=== PATIENT | male | born 1955 | race Caucasian/White ===

== ENCOUNTER 2016-12-16 15:12 | Inpatient (IN) | payer OTHER ==
[2016-12-16] VITALS (7 sets, daily range): BP systolic 116–140; BP diastolic 42–86
[~2016-12-16] VITALS: Ht 182.9 cm; Wt 85.4 kg
--- NOTE | ~2016-12-16 | CON ---
[place], [place] REPORT OF CONSULTATION NAME: TERI WARD UNIT #: [id number] ROOM: 406 DOCTOR: ANGEL LUIS BANDA MD BIRTHDATE: [birth year] DOS: 12/18/2016 CARDIOLOGY CONSULT REASON FOR CONSULTATION: Atrial fibrillation. CONSULTING PHYSICIAN: Yoan Hunt DO PRIMARY CARE PHYSICIAN: Christopher Simon MD CLINICAL HISTORY: The patient is a 61-year-old gentleman, who presented to the hospital with progressive shortness of breath. He was discharged from the hospital about 10 days ago to a custodial. He was treated for right-sided pneumonia at that time. In the Emergency Room, he was found to be in atrial fibrillation with rapid ventricular rate. He has history of recent atrial fibrillation as well. He was also diagnosed with lung cancer recently and he is anticipating chemotherapy. He denies any dizziness, syncope. No PND, no orthopnea, no fever or chills, no nausea, vomiting, diarrhea. He did complain of some left leg pain and numbness. No cough, no hemoptysis. No blurred vision, no double vision. No hematuria or dysuria. No melena. He was on home oxygen 3 liters per minute. REVIEW OF SYSTEMS: Review of the 8 systems negative except as mentioned above. PAST MEDICAL HISTORY: 1. Paroxysmal atrial fibrillation. 2. Recently diagnosed lung cancer, right lung. 3. Malnutrition. 3. COPD. 4. Depression. 5. Hepatitis C. 6. The patient had osteoarthritis. PAST SURGICAL HISTORY: Cataract surgery, inguinal hernia repair. SOCIAL HISTORY: The patient does use alcohol. Former smoker, quit a few years ago. FAMILY HISTORY: Nil contributory. Father at the age of 79 and mother at the age of 64. Sister at the age of 43 from cancer. ALLERGIES: No known drug allergies. HOME MEDICATIONS: Reviewed. CURRENT MEDICATIONS: Reviewed. REVIEW OF THE DIAGNOSTIC TESTS: EKG rhythm strips and labs reviewed. Cardiac enzymes including troponin was unremarkable. WBC count is 20,000, hemoglobin [place], [place] REPORT OF CONSULTATION NAME: TERI WARD UNIT #: [id number] ROOM: 406 DOCTOR: ANGEL LUIS BANDA MD BIRTHDATE: [birth year] ____. INR 2.6. PHYSICAL EXAMINATION: VITAL SIGNS: Blood pressure ____, pulse 52, respiratory rate is 22. GENERAL: Alert, comfortable, in no acute distress. HEAD AND NECK: Pupils are round, equal. No jaundice. Tongue was moist and pharynx was clear. NECK: Supple, no distended neck veins. No carotid bruits. CHEST: Nontender. Few scattered rhonchi. HEART: Slightly irregular. Grade 1/6 systolic murmur. ABDOMEN: Benign, nontender. Bowel sounds normal. EXTREMITIES: Showed trace edema. Distal pulses are palpable. SKIN: Warm and dry. No cyanosis, no clubbing. NEUROLOGIC: The patient is alert and oriented. No focal neurologic deficit. IMPRESSION: 1. Atrial fibrillation with rapid ventricular rate, currently rate controlled. 2. Right lung mass, anticipating chemotherapy. 3. Acute on chronic diastolic heart failure. 4. Mild anemia. RECOMMENDATIONS: Currently, his blood pressure and heart rates are stable. His vital signs at the time of my exam was blood pressure of ____, pulse 52, respiratory rate is 22. We will wean and discontinue IV Cardizem and resume his home beta-elliot, metoprolol 50 mg twice a day and monitor his heart rate and blood pressures. Continue his home Lasix as well as Coumadin and keep the INR between 2 to 3. No further cardiac testing at this time. He can be discharged home either later today or tomorrow if his heart rates and blood pressure are controlled. There is no family at bedside at the time of my examination. Thank you, Dr. Hunt, for asking us to evaluate this patient and we will follow the case along with you. [place], [place] REPORT OF CONSULTATION NAME: TERI WARD UNIT #: [id number] ROOM: 406 DOCTOR: VERONIKA DOWD,ANGEL LUIS BIRTHDATE: [birth year] ANGEL LUIS BANDA MD CM:CONSTR:REPORT OF CONSULTATION 2106 12/21/16 0245 interface
--- NOTE | ~2016-12-16 | PR ---
[place], [place] PROGRESS NOTE NAME: TERI WARD [facility] #: [id number] UNIT #: [id number] ROOM: 406 DOCTOR: MAZIN AVENDANO MD BIRTHDATE: [birth year] DOS: SUBJECTIVE: The patient is sitting up in bed, does continue to be short of breath, but is reporting some improvement. No specific cardiac complaint. No chest pain, no chest pressure. The patient is walking in the hallway and wants to go home. No fever, no chills, no night sweats. No lower extremity edema. No dizziness, no lightheadedness. OBJECTIVE: VITAL SIGNS: Blood pressure 120/79, heart rate 86, respiratory rate 20, temperature 97.5. NECK: Good upstroke, no bruit. HEART: S1, S2 with no rub. Distant heart sound though. CHEST AND BACK: No deformities. LUNGS: Significant decrease in air movement, specifically at the left lower lung with no wheezing, no rales. EXTREMITIES: Lower extremities: No edema. Faint distal pulses. LABORATORY DATA: INR is 2.3. White count 21.9. Potassium is 4.4, creatinine is 0.6. ASSESSMENT AND PLAN: History of newly diagnosed lung cancer. The patient in preparation for chemotherapy and subsequent surgery. New onset atrial fibrillation that he is currently managed with Coumadin with INR of 2.3 along with Lopressor with good heart rate control. The patient can be discharged home with early followup this coming Wednesday with Dr. Ortega as an outpatient. The patient was advised to call for any change in symptoms. Follow up overall with Dr. Platt as an outpatient. MAZIN AVENDANO MD CM:PNTRANS [id number] MAZIN AVENDANO MD 12/19/16 112 interface
[~2016-12-16 15:12] MED LIST: ACETAMINOPHEN-H1 TA2 PO; COUMADIN4 M2 PO; DUONEB 3 MG/3 ML3 M1 INH; DUONEB 3 MG/3 ML3 M1 NEB; FUROSEMIDE40 MG PO; KLOR-CON M2020 ME1 PO; LEVAQUIN750 M1 PO; MEROPENEM1 G1 IV; NAPROXEN DELAY375 MG PO; NYSTATIN100000 U/M PO; PREDNISONE10 MG PO; PROAIR HFA8.5 GM INH; SYMBICORT1 AE1 INH; TEMAZEPAM15 M1 PO; TENORMIN25 M1 PO; TOPROL XL50 M1 PO; VITAMIN D5000 I3 PO
[2016-12-16 16:28] LABS: HEMATOCRIT 36.4 % (42.0-52.0); HEMOGLOBIN 11.9 g/dl (14.0-18.0); MEAN CELL VOLUME 86.3 fl (80.0-94.0); MEAN CORPUSCULAR HGB 28.2 pg (27.0-31.0); MEAN CORPUSCULAR HGB CONC 32.7 g/dl (33.0-37.0); MEAN PLATELET VOLUME 9.5 fl (9.6-12.3); PLATELET COUNT AUTOMATED 225 10*3/uL (130-400); RED BLOOD COUNT 4.22 10*6/uL (4.50-5.90); RED CELL DISTRI WIDTH 15.5 % (0-14.5); WHITE BLOOD COUNT 23.3 10*3/uL (4.8-10.8)
[2016-12-16 16:38] LABS: INTERNATIONAL NORM RATIO 2.3 (2.0-3.5); PROTHROMBIN TIME 25.8 SECONDS (9.0-12.4)
[2016-12-16 16:46] LABS: ALBUMIN 2.2 gm/dl (3.1-4.5); ALKALINE PHOSPHATASE 72 U/L (45-117); BILIRUBIN, TOTAL 0.5 mg/dl (0.2-1.0); BUN 18 mg/dl (7-24); CARBON DIOXIDE 33 mmol/L (21-32); CHLORIDE 101 mmol/L (98-107); CPK 42 U/L (39-308); EST GLOM FILT AFRICAN AMERICAN > 60 ml/min; GLUCOSE 122 mg/dL (65-99); LDH 243 U/L (87-241); MAGNESIUM 2.1 mg/dL (1.5-2.1); POTASSIUM 4.4 mmol/L (3.5-5.1); SGOT/AST 20 IU/L (3-35); SGPT/ALT 32 U/L (12-78); SODIUM 142 mmol/L (136-145); TOTAL PROTEIN 6.1 gm/dL (6.4-8.2)
[2016-12-16 16:47] LABS: TROPONIN I < 0.015 ng/ml (<0.045)
[2016-12-16 16:53] LABS: LYMPHOCYTE # 0.9 10*3/uL (1.3-4.4); METAMYELOCYTES 1 % (0-0); MONOCYTE # 2.1 10*3/uL (0.1-1.0); NEUTROPHILS 86 % (47-73); TOTAL CELLS COUNTED 100 #CELLS
[2016-12-16 16:55] LABS: PLATELET SUFFICIENCY NORMAL (NORMAL)
[2016-12-16] MEDS ORDERED: LASIX40 MG PO (19:36)
[2016-12-17] VITALS (10 sets, daily range): BP systolic 98–138; BP diastolic 60–79
[2016-12-17 01:00] LABS: TROPONIN I 0.017 ng/ml (<0.045)
[2016-12-17 06:37] LABS: CKMB 1.5 ng/ml (0.5-3.6)
[2016-12-17 06:38] LABS: CPK 32 U/L (39-308); TROPONIN I < 0.015 ng/ml (<0.045)
[2016-12-17 06:40] LABS: HEMOGLOBIN A1c 6.5 % (4.8-5.6)
[2016-12-17 06:43] LABS: HEMATOCRIT 34.8 % (42.0-52.0); HEMOGLOBIN 11.2 g/dl (14.0-18.0); MEAN CELL VOLUME 87.2 fl (80.0-94.0); MEAN CORPUSCULAR HGB 28.1 pg (27.0-31.0); MEAN CORPUSCULAR HGB CONC 32.2 g/dl (33.0-37.0); MEAN PLATELET VOLUME 9.8 fl (9.6-12.3); PLATELET COUNT AUTOMATED 232 10*3/uL (130-400); RED BLOOD COUNT 3.99 10*6/uL (4.50-5.90); RED CELL DISTRI WIDTH 15.5 % (0-14.5); RETICULOCYTE % 1.29 % (0.50-2.50); WHITE BLOOD COUNT 19.6 10*3/uL (4.8-10.8)
[2016-12-17 06:46] LABS: IRF 7.7 % (2.4-13.3); RET-He 29.8 pg (32.1-37.9)
[2016-12-17 06:59] LABS: CHLORIDE 99 mmol/L (98-107); POTASSIUM 4.4 mmol/L (3.5-5.1); SODIUM 139 mmol/L (136-145)
[2016-12-17 07:02] LABS: PROTHROMBIN TIME 21.9 SECONDS (9.0-12.4)
[2016-12-17 07:08] LABS: FERRITIN 976.3 ng/mL (22.0-322.0); VITAMIN D, 25-HYDROXY 33.2 ng/mL (30-100)
[2016-12-17 07:09] LABS: FOLIC ACID 13.82 ng/mL (>5.38)
[2016-12-17 07:14] LABS: ALBUMIN 2.1 gm/dl (3.1-4.5); ALKALINE PHOSPHATASE 70 U/L (45-117); BILIRUBIN, TOTAL 0.6 mg/dl (0.2-1.0); BUN 15 mg/dl (7-24); CARBON DIOXIDE 32 mmol/L (21-32); CHOLESTEROL 193 mg/dL (<200); EST GLOM FILT AFRICAN AMERICAN > 60 ml/min; GLUCOSE 227 mg/dL (65-99); HDL CHOLESTEROL 46 mg/dl (40-60); IRON 21 ug/dL (65-175); LDL CHOLESTEROL 132 mg/dL (9-159); MAGNESIUM 2.1 mg/dL (1.5-2.1); PHOSPHOROUS 2.8 mg/dL (2.5-4.9); SGOT/AST 16 IU/L (3-35); SGPT/ALT 30 U/L (12-78); THYROID STIM HORMONE (HS) 0.463 uIU/ml (0.358-4.75); TOTAL PROTEIN 5.9 gm/dL (6.4-8.2); TRIGLYCERIDES 76 mg/dl (<150); VLDL CHOLESTEROL 15 mg/dL (6-40)
[2016-12-17 07:21] LABS: LYMPHOCYTE # 0.4 10*3/uL (1.3-4.4); MONOCYTE # 0.2 10*3/uL (0.1-1.0); NEUTROPHILS 97 % (47-73); TOTAL CELLS COUNTED 100 #CELLS
[2016-12-17 07:22] LABS: PLATELET SUFFICIENCY NORMAL (NORMAL)
[2016-12-17] MEDS ORDERED: DUONEB 3 MG/3 ML3 M1 INH (10:45)
[2016-12-17] MEDS ORDERED: PREDNISONE10 MG PO (10:47)
[2016-12-17] MEDS ORDERED: NORCO 5-325 TA1 EACH PO (10:47)
[2016-12-17 12:18] LABS: CKMB 1.8 ng/ml (0.5-3.6); CPK 30 U/L (39-308)
[2016-12-17 12:27] LABS: TROPONIN I < 0.015 ng/ml (<0.045)
[2016-12-17 13:41] LABS: BILIRUBIN NEGATIVE (NEGATIVE); BLOOD NEGATIVE (NEGATIVE); CLARITY CLEAR (CLEAR); COLOR YELLOW (YELLOW); GLUCOSE 1+ (NEGATIVE); KETONE NEGATIVE (NEGATIVE); LEUKO ESTERASE NEGATIVE (NEGATIVE); NITRITE NEGATIVE (NEGATIVE); PH 6.5 (5.0-9.0); PROTEIN TRACE (NEGATIVE); UROBILINOGEN 0.2 E.U./dl (0.2-1.0)
[2016-12-17 14:42] LABS: EPITHELIAL CELLS 0-2; RBC 0-2 rbc/hpf (0-2); URINE REFLEX COMMENT NO (NO); YEAST TRACE
[2016-12-18] VITALS (12 sets, daily range): BP systolic 108–126; BP diastolic 60–86
[2016-12-18 07:01] LABS: HEMATOCRIT 34.7 % (42.0-52.0); HEMOGLOBIN 11.2 g/dl (14.0-18.0); MEAN CELL VOLUME 85.9 fl (80.0-94.0); MEAN CORPUSCULAR HGB 27.7 pg (27.0-31.0); MEAN CORPUSCULAR HGB CONC 32.3 g/dl (33.0-37.0); MEAN PLATELET VOLUME 9.5 fl (9.6-12.3); PLATELET COUNT AUTOMATED 252 10*3/uL (130-400); RED BLOOD COUNT 4.04 10*6/uL (4.50-5.90); RED CELL DISTRI WIDTH 15.5 % (0-14.5)
[2016-12-18 07:30] LABS: LYMPHOCYTE # 0.6 10*3/uL (1.3-4.4); MONOCYTE # 0.8 10*3/uL (0.1-1.0); NEUTROPHIL # 18.6 10*3/uL (2.3-7.9); NEUTROPHILS 93 % (47-73); PLATELET SUFFICIENCY NORMAL (NORMAL); TOTAL CELLS COUNTED 100 #CELLS
[2016-12-18 07:35] LABS: INTERNATIONAL NORM RATIO 2.6 (2.0-3.5); PROTHROMBIN TIME 29.1 SECONDS (9.0-12.4)
[2016-12-19] VITALS: BP 113/79
[2016-12-19 02:00] VITALS: BP 114/80
[2016-12-19 06:00] VITALS: BP 120/78
[2016-12-19 06:26] LABS: HEMATOCRIT 34.1 % (42.0-52.0); HEMOGLOBIN 10.8 g/dl (14.0-18.0); MEAN CELL VOLUME 88.3 fl (80.0-94.0); MEAN CORPUSCULAR HGB CONC 31.7 g/dl (33.0-37.0); MEAN PLATELET VOLUME 9.5 fl (9.6-12.3); PLATELET COUNT AUTOMATED 287 10*3/uL (130-400); RED BLOOD COUNT 3.86 10*6/uL (4.50-5.90); RED CELL DISTRI WIDTH 15.8 % (0-14.5); WHITE BLOOD COUNT 21.9 10*3/uL (4.8-10.8)
[2016-12-19 06:35] LABS: INTERNATIONAL NORM RATIO 3.7 (2.0-3.5); PROTHROMBIN TIME 42.1 SECONDS (9.0-12.4)
[2016-12-19 06:53] LABS: LYMPHOCYTE # 0.2 10*3/uL (1.3-4.4); MONOCYTE # 0.2 10*3/uL (0.1-1.0); NEUTROPHIL # 21.5 10*3/uL (2.3-7.9); NEUTROPHILS 98 % (47-73); TOTAL CELLS COUNTED 100 #CELLS
[2016-12-19 06:54] LABS: PLATELET SUFFICIENCY NORMAL (NORMAL); TOXIC GRANULATION SLIGHT
[2016-12-19 08:00] VITALS: BP 120/79
[2016-12-19] MEDS ORDERED: FEOSOL325 MG PO (11:33)
[2016-12-19] MEDS ORDERED: DOXYCYCLINE100 MG PO (11:33)
[2016-12-19 12:00] VITALS: BP 132/94
[2016-12-19] MEDS ORDERED: ACETAMINOPHEN-H1 TA2 PO ×2 (13:37→13:45)
== END 2016-12-19 14:00 | disposition home health service (06) | DRG 871 ==
LOC: ED 15:12 → EDHOLD 16:36 → 4E 16:36
PROVIDERS: Hospitalist; Internal Medicine; Physician Assistant
DX: A41.9 Sepsis, unspecified organism (principal); E43 Unspecified severe protein-calorie malnutrition; J96.20 Acute and chronic respiratory failure, unspecified whether with hypoxia or hypercapnia; I50.33 Acute on chronic diastolic (congestive) heart failure; D68.9 Coagulation defect, unspecified; J18.1 Lobar pneumonia, unspecified organism; J44.1 Chronic obstructive pulmonary disease with (acute) exacerbation; I48.0 Paroxysmal atrial fibrillation; R91.8 Other nonspecific abnormal finding of lung field; R73.9 Hyperglycemia, unspecified; D64.9 Anemia, unspecified; Z96.1 Presence of intraocular lens; F32.9 Major depressive disorder, single episode, unspecified; T45.515A Adverse effect of anticoagulants, initial encounter; M19.90 Unspecified osteoarthritis, unspecified site; Z86.19 Personal history of other infectious and parasitic diseases; Z98.41 Cataract extraction status, right eye; Z80.9 Family history of malignant neoplasm, unspecified; Z79.2 Long term (current) use of antibiotics; Z79.1 Long term (current) use of non-steroidal anti-inflammatories (NSAID); Z79.01 Long term (current) use of anticoagulants; Y92.89 Other specified places as the place of occurrence of the external cause; Z85.118 Personal history of other malignant neoplasm of bronchus and lung; Z87.891 Personal history of nicotine dependence; Z68.25 Body mass index [BMI] 25.0-25.9, adult

== ENCOUNTER 2016-12-27 10:01 | Inpatient (IN) | payer OTHER ==
[~2016-12-27] VITALS: Ht 182.9 cm; Wt 79.4 kg
[2016-12-27] VITALS (10 sets, daily range): BP systolic 103–139; BP diastolic 61–79
--- NOTE | ~2016-12-27 | PR ---
[place], [place] PROGRESS NOTE NAME: TERI WARD UNIT #: [id number] ROOM: 509 DOCTOR: CHRISTINA NIELSEN MD BIRTHDATE: [birth year] DOS: 01/02/2017 PULMONARY PROGRESS NOTE SUBJECTIVE: He has been noted comfortable at this time without any significant further pleural fluid drainage was noted from the chest tube. Only 20 mL of pleural fluid drainage was noted. He has been noted with decreasing shortness of breath. Chest pain for the patient and other pain for the patient has been controlled with pain medications. OBJECTIVE: VITAL SIGNS: For the patient this morning, blood pressure 111/70, temperature normal, respiratory rate 22, heart rate 104-86. The pulse oxygen saturation of the patient recorded on 4 liters nasal cannula 96% saturation. HEENT: Examination showed no new change. NECK: Supple. CARDIOVASCULAR SYSTEM: S1, S2 audible. LUNGS: Mild to moderate decreased breath sound, right chest. ABDOMEN: Soft, nontender, bowel sounds present. EXTREMITIES: Show mild edema. LABORATORY DATA: CBC today: WBC count 29.0, hemoglobin 11.1, hematocrit 36.9, platelet count 402,000. The PT/INR today noted 2.5, which is therapeutic. The chest x-ray of the patient that was done this morning showed no changes from yesterday. Chest tube remains in place in the left hemithorax with a large mass lesion in the right upper lobe. There was no pneumothorax. IMPRESSION: 1. The patient with malignant pleural fluid for the patient, currently planned for chemical pleurodesis to be done today. 2. Leukocytosis with acute bacterial pneumonia of the patient postobstructive pneumonia and history of current known lung cancer, squamous cell cancer. PLAN OF TREATMENT: Chemical pleurodesis will be done at the bedside. Other changes in the treatment will be done if necessary with progression of the illness. [place], [place] PROGRESS NOTE NAME: TERI WARD UNIT #: [id number] ROOM: 509 DOCTOR: CHRISTINA NIELSEN MD BIRTHDATE: [birth year] CHRISTINA BARRETT MD CM:PNTRANS [phone] CHRISTINA REYES MD 01/02/172050 interface
--- NOTE | ~2016-12-27 | PR ---
[place], [place] PROGRESS NOTE NAME: TERI WARD UNIT #: [id number] ROOM: 509 DOCTOR: CHRISTINA NIELSEN MD BIRTHDATE: [birth year] DOS: 01/04/2017 PULMONARY PROGRESS NOTE SUBJECTIVE: Chest tube drainage was noted none at this time. The patient has been noted without any acute respiratory distress at this time. Continue all the previous management including pain management for his chest pain. OBJECTIVE: VITAL SIGNS: For the patient which has been recorded showed the temperature of the patient noted as normal. The respiratory rate 22, heart rate 109, blood pressure 102/64. Pulse oxygen saturation recorded for patient as 95% with the 50% Venturi mask. HEENT: Examination shows head was atraumatic. Eyes nonicterus. NECK: Supple. CARDIOVASCULAR: S1, S2 audible. LUNGS: Showed decreased breath sounds noted in the right chest auscultation as previously. ABDOMEN: Soft, nontender. LABORATORY DATA: Chest x-ray which was done this morning for the patient was noted with persistent opacification of the right upper lobe secondary to atelectasis and large lung mass for patient in the right upper lobe. Chest tube noted in place with expanded right lower lung. CBC today for the patient, WBC count 36.8, hemoglobin 11.5, hematocrit 38.3, platelet count 505,000. BMP for this patient that was done this morning shows sodium 133, BUN 22, creatinine was normal, carbon dioxide 39. IMPRESSION: 1. Malignant pleural fluid for this patient was noted secondary to current advanced malignancy with squamous cell cancer. 2. The patient with resolving acute postobstructive pneumonia with persistent leukocytosis, other etiology of leukocytosis will be considered most likely secondary to lung malignancy as well. 3. Overall debility for patient as well with chest pain. PLAN OF TREATMENT: Continuation of the current plan of management at this time without any changes. Usual care. All other supportive therapy, plan and management. Usual treatment. Chest tube has been removed for this patient at the bedside without any difficulty. The patient might be considered for possible assessment for transfer to the long-term acute care facility. [place], [place] PROGRESS NOTE NAME: TERI WARD UNIT #: [id number] ROOM: 509 DOCTOR: CHRISTINA NIELSEN MD BIRTHDATE: [birth year] CHRISTINA BARRETT MD CM:PNTRANS [phone] CHRISTINA REYES MD 01/05/17 0354 interface
--- NOTE | ~2016-12-27 | PR ---
[place], [place] PROGRESS NOTE NAME: TERI WARD [facility] #: [id number] UNIT #: [id number] ROOM: 509 DOCTOR: GRIS SHERMAN MD BIRTHDATE: [birth year] DOS: 01/01/2017 SUBJECTIVE: The patient is doing much better. He states he had a visceral for shortness of breath, but feeling good now. REVIEW OF SYSTEMS: HEENT: No trouble swallowing. No double vision. No loss of vision. No pain. ENT AND RESPIRATORY: No wheeze. No change in voice. No cough. No shortness of breath. No coughing up blood. No epistaxis. CARDIOLOGIC: No chest pain. No dizziness. No irregular heartbeat. No leg edema. No palpitations. No shortness of breath. HEMATOLOGIC AND LYMPH: No past transfusion. No fatigue. No loss of appetite. No easy bruising. GASTROENTEROLOGIC: No change in bowel habits. No vomiting blood. No abdominal cramping. No nausea. No vomiting. No diarrhea. No constipation. No blood in stool. MALE REPRODUCTIVE: No testicular pain. No penile discharge. MUSCULOSKELETAL: No back pain. No muscle pain or weakness. No tingling/numbness. UROLOGIC: No pain with urination. No difficulty urinating. No frequent urination. NEUROLOGIC: No burning pain in feet. No trouble with coordination. No loss of consciousness. No headache. No tingling/numbness. No memory loss. PHYSICAL EXAMINATION: GENERAL: He is a pleasant gentleman, in no apparent distress. VITAL SIGNS: Stable. He is afebrile. HEENT: Normocephalic, atraumatic NECK AND THYROID: Supple. No JVD, thyromegaly, or lymphadenopathy. HEART: Normal S1, S2. Regular rate and rhythm. LUNGS: Clear to auscultation and percussion. ABDOMEN: Soft. Nontender, nondistended. Bowel sounds present. EXTREMITIES: Normal ROM. No clubbing. No edema. LABORATORY DATA: Sodium 142, potassium 4.4, chloride 98, bicarbonate 40. Chest x-ray showed no significant change, large mass in the right upper lobe and a small apical right pneumothorax. ASSESSMENT: 1. Acute respiratory failure with hypoxia. 2. Pneumonia. 3. Atrial fibrillation. 4. Metastatic lung cancer. 5. Leukocytosis, reactive. 6. Anemia of neoplastic disorder. 7. Thrombocytosis. PLAN: Overall, he is getting better. We will wait for his overall condition to improve. I expect the white count to improve once his overall condition improves. The patient will be needing treatment as soon as he is stable enough [place], [place] PROGRESS NOTE NAME: TERI WARD UNIT #: [id number] ROOM: [facility] DOCTOR: GRIS SHERMAN MD BIRTHDATE: [birth year] to get it. I had a detailed discussion with the patient about it, seemed to understand it. Ample time was given to the patient to ask me questions. GRIS SHERMAN MD CM:PNTRANS [phone] GRIS SHERMAN MD 01/01/17 174 interface
--- NOTE | ~2016-12-27 | PR ---
[place], [place] PROGRESS NOTE NAME: TERI WARD [facility] #: [id number] UNIT #: [id number] ROOM: 509 DOCTOR: NENA REYES MD,CHRISTINA BIRTHDATE: [birth year] DOS: 12/30/2016 PULMONARY PROGRESS NOTE SUBJECTIVE: The patient has been noted comfortable at this time. It was noted the pain in the chest yesterday, which has been managed with a combination of medication use of morphine sulfate and IV Toradol. This morning, the patient had been comfortably resting. He has been continued on antibiotics. The chest tube was inserted yesterday, which has drained about 1600 mL of pleural fluid from the right pleural space. OBJECTIVE: VITAL SIGNS: For the patient, which have been recorded shows normal temperature, respiratory rate of 20, heart rate of 50, blood pressure of /61-150/75. Intake for the patient is 2000 mL, output was approximately 3900 mL. Pulse oxygen saturation of the patient on 4 L nasal cannula 97% saturation. HEENT: Examination shows head was atraumatic. Eyes nonicterus. NECK: Supple. CARDIOVASCULAR SYSTEM: S1, S2 audible. LUNGS: The patient was noted without any wheezing or crackles. Breaths are noted mildly decreased bilaterally. ABDOMEN: Soft, nontender. LABORATORY DATA: Arterial blood gas on 4.5 L nasal cannula yesterday pH of 7.42, pCO2 of 58, pO2 of 88.4. The analysis of the pleural fluid for the patient was noted at 3349 WBCs with 11,000 RBCs, 70% neutrophils. The protein was noted as 2.3. LDH 188, cholesterol of 58. Albumin 1.1. The culture of the pleural fluid was pending. Gram-stain shows many white blood cells without any organisms seen. Chest x-ray of the patient yesterday and this morning for the patient shows non-expanded lung for the patient at the top with small pneumothorax cannot be excluded, was a non-expanded lung. The lung otherwise was well-inflated in the right lower lobe for the patient with complete resolution of the pleural fluid. Chest tube noted in appropriate position in the right lower chest. BMP this morning was noted BUN 27, creatinine was normal, glucose 129, carbon dioxide 35. Vancomycin level 23.5. CBC this morning, WBC count 25.9, hemoglobin 11.8, hematocrit 37.7, platelet count 482,000. INR for the patient this morning was recorded as INR of 1.7. IMPRESSION: 1. The patient who has been currently noted with pleural fluid for the patient with possibility of pleural fluid related to the acute infection would be considered, rule out malignant pleural fluid as well. 2. Acute postobstructive pneumonia for this patient as well with recurrent history of atrial fibrillation with rapid ventricular response. 3. Subtherapeutic INR was noted today. 4. secondary to underlying malignancy, pneumonia and others. PLAN OF TREATMENT: Continue the chest tube to suction at this time. Monitor results of the pleural fluid. Continue antibiotic for the patient. Monitor [place], [place] PROGRESS NOTE [id number] UNIT #: [id number] ROOM: [facility] DOCTOR: NENA REYES MD,CHRISTINA BIRTHDATE: [birth year] leukocytosis. Leukocytosis has been improving. Other supportive therapy, plan of management. Maximize the anticoagulation of the patient's INR to keep in therapeutic range. Usual care. Other supportive plan of management and therapies. CHRISTINA BARRETT MD CM:SATNAM [phone] CHRISTINA REYES MD 12/30/162018 interface
--- NOTE | ~2016-12-27 | PR ---
[place], [place] PROGRESS NOTE NAME: TERI WARD [facility] #: [id number] UNIT #: [id number] ROOM: 509 DOCTOR: NENA REYES MD,CHRISTINA BIRTHDATE: [birth year] DOS: 01/01/2017 PULMONARY PROGRESS NOTE SUBJECTIVE: He has been noted without any acute distress at the present time. The chest pain has been noted well controlled. He was still noted some symptoms of shortness of breath. The patient denies any symptoms of acute ____ chest pain. Cough has been noted mild without any sputum expectoration. OBJECTIVE: VITAL SIGNS: For the patient which has been recorded shows the temperature of the patient noted as normal. The respiratory rate of the patient recorded as 18, heart rate 87, blood pressure 112/73-160/80. Pulse oxygen saturation noted on 4 liters nasal cannula 93% saturation. HEENT: Examination shows no new change. NECK: Supple. CARDIOVASCULAR SYSTEM: S1, S2 audible. LUNGS: Without any wheezing or crackles. Breaths are noted decreased in the right lung. ABDOMEN: Soft, nontender. LABORATORY DATA: CBC today: WBC count 26.7, hemoglobin 11.2, hematocrit 36.9, platelet count of 473,000. The INR for the patient today noted 1.3, which is subtherapeutic. The BMP this morning was noted as normal BUN and creatinine. The chest x-ray of the patient that was done this morning for the patient was personally reviewed for this patient and was noted with findings of a large tumor which was noted in the right upper lobe for this patient. The chest tube remains in place. The pneumothorax of the patient has been noted very small at this time and improving as compared with the previous chest x-ray for the past couple of days. There were no significant pleural fluid accumulation of the patient was noted. IMPRESSION: 1. The patient with malignant pleural fluid which has been determined with the current pleural fluid cytology positive for malignancy. 2. Resolving apical pneumothorax for the patient and the right side of the patient currently has a chest tube in place. 3. Postobstructive pneumonia. 4. Squamous cell cancer of the patient with the malignancy noted in the pleural fluid on the right side. PLAN OF TREATMENT: Await another 24 hours and then do the chemical pleurodesis of the patient for the current right malignant pleural fluid (recurrence). In the meantime, continue antibiotics. Optimize the patient's anticoagulation per Cardiology assessment and management and other intervention as necessary for the atrial fibrillation as well. [place], [place] PROGRESS NOTE NAME: TERI WARD [place] UNIT #: [id number] ROOM: [facility] DOCTOR: CHRISTINA NIELSEN MD BIRTHDATE: [birth year] CHRISTINA BARRETT MD CM:PNTRANS [phone] CHRISTINA REYES MD 01/02/17 0502 interface
--- NOTE | ~2016-12-27 | CON ---
[place], [place] REPORT OF CON[facility]ULTATION [id number] UNIT #: [id number] [facility] DOCTOR: CHRISTINA NIELSEN MD BIRTHDATE: [birth year] DOS: 12/28/2016 PULMONARY CONSULTATION EVALUATION AND MANAGEMENT CONSULTATION REQUESTED BY: The consultation was asked for this patient for assessment of respiratory symptom for this patient, recent diagnosis of lung cancer for this patient and COPD. HISTORY OF PRESENT ILLNESS: This is a 61-year-old white male who has been well known to me. The patient had been recently admitted to the hospital several times for this patient in the previous admission for the patient as the patient was assessed in October 2016. The patient has been established a diagnosis of lung cancer at that time as a nonsmall cell lung cancer for the patient with predominant features of squamous cell cancer. The patient has been assessed by Dr. Keyes because of multiple frequent hospitalizations of the patient with atrial fibrillation, rapid ventricular response and other problems. The patient still has not been able to receive any chemotherapy so far. The patient has been admitted to the hospital again for the patient from date of 12/27/2016 under the hospitalist services. He has been noted progressive general weakness and fatigue with increased symptoms of shortness of breath. The patient reported with significant tachycardia of the patient, atrial fibrillation, rapid ventricular response. The patient denies any symptoms of chest pain, but complains of tightness in the chest. He has been noted with mild wheezing as well. There were no symptoms of hemoptysis. REVIEW OF SYSTEMS: CONSTITUTIONAL SYMPTOMS: He was noted significant fatigue and tiredness. Denies symptoms of fever or chills. Complains of generalized body aches and pains. EYES: Denies any burning, redness, or tenderness. EARS, NOSE, THROAT SYMPTOMS: No sore throat, hoarseness, otalgia, postnasal drainage. CARDIOVASCULAR SYSTEM: Denies anginal pain, edema or pain of the lower extremities. GASTROINTESTINAL SYMPTOMS: The patient denies symptoms of nausea, vomiting, diarrhea, abdominal pain, hematemesis, melena, hematochezia, or dysphagia. GENITOURINARY SYMPTOMS: Denies dysuria, suprapubic pain, hematuria. MUSCULOSKELETAL SYMPTOMS: No acute joint pain, redness, or tenderness. SKIN: No lesions or rashes. CENTRAL NERVOUS SYSTEM: Denies dizziness, headache, diplopia or syncopal episodes. The remaining systems of the patient were reviewed with the patient, they were noted all negative. PAST MEDICAL HISTORY: 1. Noted for recent admission in this hospital of the patient and discharged on 12/19/2016 for this patient and the patient was managed at that time for acute exacerbation of COPD for this patient, atrial fibrillation, rapid ventricular response and other problems. 1. Past history of centrilobular emphysema. 2. Evidence of right lung mass for the patient with a squamous cell cancer for [place], [place] REPORT OF CONSULTATION NAME: TERI WARD UNIT #: [id number] ROOM: [facility] DOCTOR: ARTURO NIELSEN MDM BIRTHDATE: [birth year] this patient was noted for the patient with a hospitalization in October 2016. 3. History of atrial fibrillation as well with intermittent rapid ventricular response. 4. History of past depression. 5. Osteoarthritis. 6. History of hepatitis C. PAST SURGICAL HISTORY: Was noted, 1. Cataract extraction with lens implantation. 2. Surgery of the mandible. 3. Bilateral inguinal hernia repair. 4. MediPort insertion. 5. Fiberoptic bronchoscopy of the patient that was done on 11/13/2016. SOCIAL HISTORY: The patient is at the present time, lives with his son. The patient denies any history of alcohol use or illicit drug use. Tobacco use noted since the age of about 12 or 13 years old, pack of cigarettes per day that has been discontinued by the patient since October 2016. Denies any history of alcohol use or illicit drug use, used to drink beer in the past. Denies any occupation related pulmonary exposure. FAMILY HISTORY: Noted as father at the age of 7979 years old from natural causes. Mother age of 6464 years old from natural causes as well as per patient. MEDICATIONS: Current administered medications noted use of oral Lasix, vitamin D, potassium chloride, Protonix, Mucinex 1200 mg b.i.d., Dulera, ferrous sulfate, Coumadin 4 mg daily, DuoNeb, metoprolol succinate, intravenous Cardizem drip for this patient, IV Levaquin, vancomycin and Zosyn. The patient was also getting other p.r.n. medications as well. DRUG ALLERGIES: Noted with no known drug allergies. PHYSICAL EXAMINATION: GENERAL: This is a 61-year-old male who has been noted currently awake and alert without any distress. Height of 6 feet, weight of 175 pounds. The, BMI was not accurately determined. VITAL SIGNS: The patient shows a normal temperature, respiratory rate 17-22, heart rate of 82-69, blood pressure 102/67-95/69. Intake is 1360, output is 800 mL. The pulse oxygen saturation for the patient on 4 liters nasal cannula 94% saturation recorded. Admission pulse oxygen saturation on room air was 84% saturation. HEENT: Examination shows head was atraumatic. Eyes: Nonicterus. NECK: Supple. Oral mucosa moist. CARDIOVASCULAR SYSTEM: S1, S2 audible. LUNGS: The patient was noted without any wheezing or crackles of the patient on the left side. Decreased breath sounds noted on right chest auscultation. ABDOMEN: Soft, nontender. LABORATORY DATA: Blood culture for the patient from her previous admission of [place], [place] REPORT OF CONSULTATION [facility] [id number] UNIT #: [id number] ROOM: [facility] DOCTOR: NENA REYES [facility] BIRTHDATE: [birth year] the patient on 12/14/2016 of the patient was noted as Staph epidermidis. Lactic acid yesterday was noted as 0.2 that was normal. PT/INR was noted 1.5 yesterday. CMP of the patient of 12/27/2016 for this patient noted BUN 14, creatinine 0.42, glucose 128. The CBC of patient that was done yesterday, WBC count 23, hemoglobin 12.4, hematocrit 39.8, platelet count of 479,000. CK-MB, troponin yesterday and this morning all 3 sets were noted normal. BMP of the patient this morning, BUN of 12, creatinine was normal, glucose 164, carbon dioxide of 42. Carbon dioxide of the patient yesterday was noted as 37. CBC for this patient that was done this morning, WBC count 18.3, hemoglobin 11.1, hematocrit 36.5, platelet count of 483,000 with 92% segmented neutrophils. Repeat INR today were noted 2.0, which is therapeutic. Review of the chest x-ray of patient and the CT scan of the chest was performed. The chest x-ray of the patient shows evidence of increased opacification on the right lung for this patient with further volume loss for the patient, interval development of possible pleural effusion. CT of the chest, the patient was done yesterday as well, which was personally reviewed, does not show any evidence of pulmonary embolism. Comparisons are made for the CT scan of the chest for the patient that was originally done for the patient at the time of the diagnosis of lung cancer established 11/11/2016, shows marked progression of the current malignancy with additional area of atelectasis. Loculated pleural fluid was noted with a moderate size of the right pleural for patient has been accumulated at this time. Lymphadenopathy remains persistent. Underlying additional area of pneumonia cannot be completely excluded. IMPRESSION: 1. The patient who has been currently admitted to the hospital with the signs of acute bacterial pneumonia of the patient would be considered. Possibility of bacteremia to be considered with past bacteremia Staph epidermidis and currently has a MediPort in place with infection of the Medipore certainly to be considered in the differential diagnosis with current severe leukocytosis. 2. Interval development of the moderate pleural fluid for the patient, which has been occurred for this patient with possibility of malignant pleural fluid with infectious etiology will be considered in the differential diagnosis. 3. Atrial fibrillation noted with currently uncontrolled response for this patient with the previous maximum medical therapy with oral medications as well. 4. History of past nicotine dependence as well. Acute general weakness of the patient secondary to current infectious etiology with early consideration of signs of active sepsis and bacteremia remains in consideration. PLAN OF TREATMENT: The patient is already getting anticoagulation and IV Cardizem drip for this patient for the medical management of his current medical problems. The patient has been ordered the 2 sets of blood cultures yesterday, which was obtained briefly. The 2 blood culture for this patient has been ordered to be taken from the MediPort. Anticoagulation of the patient needs to be switched to the short acting anticoagulation of the patient such as heparin and the Coumadin for the patient needs to be discontinued for this patient as well. After the completion thoracentesis, the patient will be resumed back on the anticoagulation with the Coumadin. Other supportive therapy, plan of management. Usual care. All other supportive plan of therapy and treatment. Further treatment changes will be done based on the progression of the illness. [place], [place] REPORT OF CONSULTATION NAME: TERI WARD UNIT #: [id number] ROOM: [facility] DOCTOR: NENA REYES MD,CHRISTINA BIRTHDATE: [birth year] Thanks for allowing me to participate in the care of this patient. CHRISTINA BARRETT MD CM:CONSTR:REPORT OF CONSULTATION 1202 12/29/16 0150 interface
--- NOTE | ~2016-12-27 | CON ---
[place], [place] REPORT OF CONSULTATION NAME: TERI WARD UNIT #: [id number] ROOM: [facility] DOCTOR: VERONIKA DOWD,ANGEL LUIS BIRTHDATE: [birth year] DOS: 12/27/2016 CARDIOLOGY CONSULTATION REASON FOR CONSULTATION: Atrial fibrillation with rapid ventricular rate. CLINICAL HISTORY: The patient, a 61-year-old gentleman with history of chronic atrial fibrillation, COPD, recent ____ lung mass, home oxygen presents to the Emergency Room with weakness and shortness of breath for the past one week. Due to significant shortness of breath, he could not eat or drink yesterday. He also has some left-sided chest pain like a tightness at rest. No radiation. Due to his weakness and shortness of breath, he presented to the Emergency Room and found to be in atrial fibrillation with rapid ventricular rate and was admitted to the hospital and Cardiology consulted. He was admitted recently for similar complaints, atrial fibrillation with rapid ventricular rate. He was on Coumadin and metoprolol at home. His echo from November 2016 showed normal LV function with mild mitral and tricuspid regurgitation ____ chest pains, no syncope, no nausea or vomiting, no headaches. No tingling, numbness or weakness. No blurred vision, no hematuria, dysuria, no diarrhea, no constipation. No hemoptysis. REVIEW OF SYSTEMS: Review of the 8 systems negative except as mentioned above. PAST MEDICAL HISTORY: 1. Paroxysmal atrial fibrillation. 2. COPD. 3. Home oxygen. 4. Lung mass, right lung. 5. Diastolic heart failure. 6. Hepatitis C. PAST SURGICAL HISTORY: History of cataract removal and hernia repair, right side and mandibular surgery. SOCIAL HISTORY: The patient does drink 6 packs of beer twice a week, does not use illicit drugs. Heavy smoker, but quit recently. ALLERGIES: The patient has no known drug allergies. FAMILY HISTORY: Father at 79. The patient was adopted. Mother at the age of 64. The patient has adopted sister, at the age of 43 from cancer. HOME MEDICATIONS AND CURRENT MEDICATIONS: Reviewed. PHYSICAL EXAMINATION: VITAL SIGNS: Blood pressure 130/70, pulse 128, respiratory rate is 26, weight 79.3 kilos. GENERAL: Alert, comfort, in mild respiratory distress. HEAD AND NECK: Pupils are equal. No jaundice. Tongue was moist and pharynx [place], [place] REPORT OF CONSULTATION NAME: TERI WARD UNIT #: [id number] ROOM: [facility] DOCTOR: ANGEL LUIS BANDA MD BIRTHDATE: [birth year] was clear. NECK: Supple, no distended neck veins, no carotid bruit. CHEST: Symmetrical and nontender. LUNGS: Showed few scattered rhonchi and diminished at bases. HEART: Irregularly irregular. Grade 1/6 systolic murmur. No palpable thrills. No S3. ABDOMEN: Benign, nontender. Bowel sounds normal. EXTREMITIES: Showed no edema. Distal pulses are palpable. SKIN: Warm and dry. No cyanosis, no clubbing. NEUROLOGIC: The patient is alert, oriented. No focal neurologic deficit. RECTAL: Deferred. GENITOURINARY: Deferred. REVIEW OF THE DIAGNOSTIC TESTS: EKG rhythm strips and labs reviewed. EKG: Showed atrial fibrillation with rapid ventricular rate, nonspecific atrial changes. WBC count ____, hemoglobin 12.4. INR 1.5. Potassium 4.2, creatinine 0.4. Cardiac enzymes are unremarkable. IMPRESSION: 1. Atrial fibrillation with rapid ventricular rate. 2. Pneumonia. 3. Atypical chest pain. 4. Respiratory distress. 5. Right lung mass. 6. Mild mitral and tricuspid regurgitation. RECOMMENDATIONS: 1. Continue IV Cardizem. 2. He received one dose of digoxin 0.25 IV. 3. Continue metoprolol 50 b.i.d. 4. Keep INR between 2 to 3 and increase the Coumadin dose today. 5. Continue rest of his home medications. 6. He is anticipating chemotherapy for his lung mass. 7. There is no family at bedside. 8. The patient counseled for compliance with the medication and also to quit drinking. ANGEL LUIS BANDA MD CM:CONSTR:REPORT OF CONSULTATION 2150 12/28/16 0925 interface
--- NOTE | ~2016-12-27 | PR ---
[place], [place] PROGRESS NOTE NAME: TERI WARD UNIT #: [id number] ROOM: 509 DOCTOR: GRIS SHERMAN MD BIRTHDATE: [birth year] DOS: 01/02/2017 SUBJECTIVE: The patient is doing better. He is less short of breath, although awake, alert, and responsive. PHYSICAL EXAMINATION: GENERAL: Pleasant gentleman, in no apparent distress. VITAL SIGNS: Blood pressure 111/70, respirations 20, pulse 104, temperature 97.9. HEENT: Normocephalic, atraumatic. NECK AND THYROID: Supple. No JVD, thyromegaly, or lymphadenopathy. HEART: Normal S1, S2. Regular rate and rhythm. LUNGS: Clear to auscultation and percussion. ABDOMEN: Soft. Nontender, nondistended. Bowel sounds present. EXTREMITIES: Normal ROM. No clubbing. No edema. LABORATORY DATA: Sodium 141, potassium 4.5, chloride 99, EGFR is more than 60. White count of 29.0, hemoglobin 11.1, hematocrit 36.9, platelet count of 402,000. ASSESSMENT: 1. Metastatic lung cancer. 2. Leukocytosis, reactive. 3. Mild thrombocytosis, reactive. 4. Acute respiratory failure with hypoxia. 5. Pneumonia. 6. Status post right chest tube placement. LABORATORY DATA: Pleural fluid was satisfactory for interpretation ____ were noticed. PLAN: Overall, he is doing better. We will continue broad spectrum antibiotics. He says he is short of breath. I expect the white count to improve once his overall condition improves. He probably will be going to [facility] for further management, discussed with the patient. [place], [place] PROGRESS NOTE NAME: TERI WARD UNIT #: [id number] ROOM: 509 DOCTOR: GRIS SHERMAN MD BIRTHDATE: [birth year] GRIS SHERMAN MD CM:PNTRANS [id number] GRIS SHERMAN MD 01/04/17 0722 interface
--- NOTE | ~2016-12-27 | PROC NOTE ---
[place], [place] PROCEDURE NOTE NAME: TERI WARD [facility] #: [id number] UNIT #: [id number] ROOM: 509 DOCTOR: NENA REYES MD,CHRISTINA BIRTHDATE: [birth year] DOS: 01/02/2017 PROCEDURE: Chemical pleurodesis for the right pleural space. PREOPERATIVE DIAGNOSIS: The patient with malignant pleural fluid, which has been noted, large volume being drained for this patient. POSTOPERATIVE DIAGNOSIS: The patient with malignant pleural fluid, which has been noted, large volume being drained for this patient. PROCEDURE DESCRIPTION: Informed consent obtained for the patient. The chest tube was clamped. The talc slurry which was made with 20 mL of 2% lidocaine remaining saline volume for the patient, which was a ____ injected through the chest tube in patient to the right pleural space without any difficulty. Additional 100 mL of normal saline was injected through that. The chest tube of the patient will be clamped for 2 hours and removed back to suction after that. Procedure was well tolerated by the patient. The patient was premedicated with intravenous pain medication prior to the procedure and continued pain management would be given if there would be any pain associated with the pleurodesis. CHRISTINA BARRETT MD CM:PROCNOTE:PROCEDURE NOTE [id number] CHRISTINA REYES MD
--- NOTE | ~2016-12-27 | PR ---
[place], [place] PROGRESS NOTE NAME: TERI WARD UNIT #: [id number] ROOM: 509 DOCTOR: CHRISTINA NIELSEN MD BIRTHDATE: [birth year] DOS: 12/31/2016 SUBJECTIVE: The patient seen and examined on 12/31/2016, has been comfortably resting at this time. He has been using the BiPAP intermittently. Denies symptoms of chest pain or any abdominal pain. Chest tube remains in place for the right pleural fluid drainage. OBJECTIVE: VITAL SIGNS: For the patient which has been recorded shows the normal temperature, respiratory rate 20, heart rate 92, blood pressure 102/68. Pulse oxygen saturation noted on 4.5 liters cannula 91-94% saturation. HEENT: No new change. NECK: Supple. CARDIOVASCULAR: S1, S2 audible. LUNGS: Noted to moderate reduction in breath sounds in the right lung. Left lung was clear. ABDOMEN: Soft, nontender. LABORATORY DATA: INR today noted 1.4 subtherapeutic. CBC today: WBC count 27.1, hemoglobin 11.6, hematocrit 30.0, platelet count was normal. Vancomycin trough level noted 15.3. BMP of the patient this morning, BUN 21, creatinine 0.16. Chest x-ray done this morning for the patient shows small apical pneumothorax, large mass lesion with improved pleural fluid drainage and aeration of the right lung noted in general. Pleural fluid drainage has been noted to decrease to only 60 mL. IMPRESSION: 1. The patient with the pending results of cytology with an exudative pleural fluid, possibility of pleural fluid secondary to malignancy and/or infection has been considered. 2. Postobstructive pneumonia. The patient's severe leukocytosis was noted with gradual reduction. 3. History of current known squamous cell lung cancer. PLAN OF TREATMENT: Continuation of the patient's current plan and management as in progress. Continue chest tube to drainage. Other treatment for this patient to be continued as previously without any changes in the management. Usual care, other supportive therapy, plan of care. [place], [place] PROGRESS NOTE NAME: TERI WARD UNIT #: [id number] ROOM: 509 DOCTOR: CHRISTINA NIELSEN MD BIRTHDATE: [birth year] CHRISTINA BARRETT MD CM:PNTRANS [id number] CHRISTINA REYES MD 01/01/17 015 interface
--- NOTE | ~2016-12-27 | CON ---
[place], [place] REPORT OF CONSULTATION NAME: TERI WARD [facility] #: [id number] UNIT #: [id number] ROOM: [facility] DOCTOR: GRIS SHERMAN MD BIRTHDATE: [birth year] DOS: 12/28/2016 HISTORY OF PRESENT ILLNESS: The patient is a pleasant 61-year-old gentleman who was recently discharged when he was on antibiotics and went to the residential, discharged from there a week ago and was supposed to see me in the office today. As per the patient, he has been dyspneic and complaining of weakness for the last 1 week. Since the day before yesterday, he has not been able to drink because of worsening shortness of breath as well as some left and mid chest pain and tightness which started about 1-2 hours before without radiation and subsequently admitted. Has a history of recently diagnosed lung cancer, consulted for further evaluation and management. The patient had CT of the chest done on 12/27/2016, showed a new large mass density in the right upper lobe measuring 10.4 cm, concerning for malignancy, large right pleural effusion and findings concerning for lymphangitic spread of the carcinoma. There is also enlarged bilateral hilar and mediastinal lymph nodes as well as advanced emphysematous changes in the left upper lobe of the lung. REVIEW OF SYSTEMS: CONSTITUTIONAL: No chills. No fatigue. No fever. No loss of appetite. No night sweats. No weakness. No weight loss. HEENT: No trouble swallowing. No loss of smell. No loss of hearing. No double vision. No pain. No discharge. ENT AND RESPIRATORY: No wheeze. No sore throat. No change in voice. No hearing loss. No nose bleed. No cough. No trouble breathing through nose. Shortness of breath persists. No coughing up blood. No epistaxis. CARDIOVASCULAR: No chest pain. No dizziness. No irregular heartbeat. No leg edema. No pain in legs while walking. No palpitations. No shortness of breath. DERMATOLOGIC: No acne. No hives. No laceration. No mole. No rash. ENDOCRINE: No cold intolerance. No diabetes. No fatigue. No hot flashes. No polydipsia. No polyuria. No urinating frequently. No weight loss. HEMATOLOGIC AND LYMPH: No fatigue. No easy bruising. GASTROENTEROLOGIC: No change in bowel habits. No indigestion. No frequent bloating. No vomiting blood. No abdominal cramping. No nausea. No heartburn. No vomiting. No abdominal pain. No dysphagia. No diarrhea. No constipation. No blood in stool. MALE REPRODUCTIVE: No testicular pain. No difficulty with erection. No diminished sexual drive. No penile discharge. MUSCULOSKELETAL: No back pain. No muscle pain or weakness. No neck pain. No tingling/numbness. No swelling/bruising. No osteoporosis treatment. OPHTHALMOLOGIC: No double vision. No diminished vision. No loss of vision. UROLOGIC: No dysuria. No frequent nighttime urination. No pain with urination. No difficulty urinating. No blood in urine. No frequent urination. No urinary incontinence. NEUROLOGIC: No loss of sensation in specific body area. No vertigo. No burning pain in feet. No trouble with balance. No trouble with coordination. No loss of consciousness. No loss of feeling/power. No confusion. No headache. No tingling/numbness. PSYCHOLOGIC: No tinnitus. No headaches. No shortness of breath. No weight decrease. No nausea. No vomiting. No abdominal discomfort. No constipation. [place], [place] REPORT OF CONSULTATION [facility] [id number] UNIT #: [id number] ROOM: [facility] DOCTOR: GRIS SHERMAN MD BIRTHDATE: [birth year] No diarrhea. No depression. No anxiety. PHYSICAL EXAMINATION: GENERAL: Pleasant gentleman, short of breath. VITAL SIGNS: Blood pressure is stable. He is afebrile. HEENT: Oral mucosa appears intact. The external ears are normal in appearance. Nares are patent without lesions, exudates, erythema, or inflammation. Tongue is symmetrical. Uvula is midline. NECK AND THYROID: Neck supple without palpable masses. Trachea is midline. No thyromegaly. No carotid bruit or JVD. BREASTS: Normal. Nipples unremarkable. No drainage. No lumps felt on either side. HEART: Normal S1, S2, without significant murmur, rub, or gallop. LUNGS: Show bilateral expiratory wheeze with right crackles and decreased breath sounds. ABDOMEN: No costovertebral angle tenderness. Soft. No organomegaly or masses. Nontender. No hernias present. Liver and spleen are not palpable. LYMPHATIC: No adenopathy noted in the cervical, supraclavicular, axillary, or inguinal regions. NEUROLOGIC: Nonfocal. Oriented to person, place, and time. MENTAL STATUS: Appropriate for mood and affect. PERIPHERAL PULSES: No varicosities. Femoral and pedal pulses are palpable. EXTREMITIES: Without cyanosis, clubbing, or edema. No gross anomalies. PAST MEDICAL HISTORY: Significant for atrial fibrillation with RVR, CHF, COPD, depression, hepatitis C, metastatic lung cancer, osteoarthritis, severe protein-calorie malnutrition. SOCIAL HISTORY: Cataract removal with insertion of prosthetic lens, history of mandibular surgery, inguinal hernia surgery, right hernia repair. SOCIAL HISTORY: Drinks 6 packs of beers x 2, about 2 times a week. Does not use any drugs. He was a former heavy smoker, used to smoke 1 packet per day for 45 years. FAMILY HISTORY: Father at age 79, cause unknown, natural . Mother adopted, at age 64. Sister at age 43 of cancer. ALLERGIES: He has no known allergies. MEDICATIONS: Acetaminophen, albuterol, Symbicort, vitamin D, ferrous sulfate, furosemide, [place], DuoNeb, metoprolol, potassium chloride, warfarin sodium. LABORATORY DATA: Sodium 142, potassium 4.2, chloride 96, bicarbonate 37, BUN 14, creatinine 0.42, EGFR more than 60, AST 22, ALT 26. White count 23.0, hemoglobin 12.4, hematocrit 39.8, MCV 88.2, platelet count of 479,000. ASSESSMENT: 1. Progressive metastatic lung cancer with increasing right pleural effusion. 2. Leukocytosis, reactive. [place], [place] REPORT OF CONSULTATION NAME: TERI WARD UNIT #: [id number] ROOM: [facility] DOCTOR: GRIS SHERMAN MD BIRTHDATE: [birth year] 3. Thrombocytosis, reactive. 4. Acute respiratory failure with hypoxia. 5. Atrial fibrillation with rapid ventricular response. PLAN: We reviewed the ____ progression of the disease. He has grown massive right pleural effusion which may require chest tube placement and drainage. Dr. Marin is going to evaluate him. In the meantime, he will continue broad-spectrum antibiotics ____ AFib with RVR and is on Cardizem drip. We will keep a close watch ____ his overall condition improves and depending on further intervention. I had a detailed discussion with the patient and he seemed to understand. Ample time was given to the patient to ask me questions. We will follow. Thanks for consulting and letting me participate in the care of this interesting patient. GRIS SHERMAN MD CM:CONSTR:REPORT OF CONSULTATION 0835 12/28/16 0938 interface
--- NOTE | ~2016-12-27 | PR ---
[place], [place] PROGRESS NOTE NAME: TERI WARD [facility] #: [id number] UNIT #: [id number] ROOM: 509 DOCTOR: GRIS SHERMAN MD BIRTHDATE: [birth year] DOS: 01/04/2017 SUBJECTIVE: The patient is still complaining of shortness of breath, though he is awake, alert, responsive. Denies any hemoptysis. REVIEW OF SYSTEMS HEENT: No trouble swallowing. No double vision. No loss of vision. No pain. ENT AND RESPIRATORY: No wheeze. No change in voice. No cough. No shortness of breath. No coughing up blood. No epistaxis. CARDIOLOGIC: No chest pain. No dizziness. No irregular heartbeat. No leg edema. No palpitations. No shortness of breath. HEMATOLOGIC AND LYMPH: No past transfusion. No fatigue. No loss of appetite. No easy bruising. GASTROENEROLOGIC: No change in bowel habits. No vomiting blood. No abdominal cramping. No nausea. No vomiting. No diarrhea. No constipation. No blood in stool. MALE REPRODUCTIVE: No testicular pain. No penile discharge. MUSCULOSKELETAL: No back pain. No muscle pain or weakness. No tingling/numbness. UROLOGIC: No pain with urination. No difficulty urinating. No frequent urination. NEUROLOGIC: No burning pain in feet. No trouble with coordination. No loss of consciousness. No headache. No tingling/numbness. No memory loss. PHYSICAL EXAMINATION: GENERAL: Pleasant gentleman, in no apparent distress. VITAL SIGNS: Stable. He is afebrile. HEENT: Normocephalic, atraumatic NECK AND THYROID: Supple. No JVD, thyromegaly, or lymphadenopathy. HEART: Normal S1, S2. Regular rate and rhythm. LUNGS: Clear to auscultation and percussion. ABDOMEN: Soft. Nontender, nondistended. Bowel sounds present. EXTREMITIES: Normal ROM. No clubbing. No edema. LABORATORY DATA: White count of 35.6, hemoglobin 11.9, hematocrit 38.8, platelet count of 460,000. Chest x-ray done on 01/03/2017 showed possibly right pleural effusion with pleural drain in place. ASSESSMENT: 1. Metastatic squamous cell carcinoma of the lung. 2. Leukocytosis, reactive/secondary to sepsis. 3. Pneumonia. 4. Acute respiratory failure with hypoxia. 5. Anemia. PLAN: The patient will continue broad spectrum antibiotics. I expect the white count to improve once his overall condition improves. If not, then further intervention. In the meantime, close followup. Discussed with the patient in detail. [place], [place] PROGRESS NOTE NAME: TERI WARD UNIT #: [id number] ROOM: [facility] DOCTOR: GRIS SHERMAN MD BIRTHDATE: [birth year] GRIS SHERMAN MD CM:PNTRANS [id number] GRIS SHERMAN MD 01/05/17108 interface
--- NOTE | ~2016-12-27 | PR ---
[place], [place] PROGRESS NOTE NAME: TERI WARD UNIT #: [id number] ROOM: Formerly named [facility] DOCTOR: NENA REYES MD,CHRISTINA BIRTHDATE: [birth year] DOS: 12/29/2016 PULMONARY PROGRESS NOTE SUBJECTIVE: The patient has been noted sitting on the bed at this time, noted significant distress with the patient's increased shortness of breath. He denies any symptoms of chest pain or any abdominal pain. The patient does have a mild coughing, but there was no sputum expectoration. OBJECTIVE: VITAL SIGNS: For the patient, which have been recorded showed the temperature noted normal, respiratory rate 22, heart rate of 69, blood pressure 124/81. HEENT: Examination shows head was atraumatic. Eyes nonicterus. NECK: Supple. CARDIOVASCULAR SYSTEM: S1, S2 audible. LUNGS: Shows severe reduced breath sounds noted in the right chest. ABDOMEN: Soft, nontender. LABORATORY DATA: Blood culture for the patient, which were done for the patient on admission 12/27 showed no bacterial growth. Culture of the sputum of the patient showed normal jayjay. Preliminary final culture results were pending. CBC: WBC count 32.3, hemoglobin 11.7, hematocrit 38.6, platelet count 552,000. CMP of the patient, BUN 19, creatinine was normal, carbon dioxide 39. PT/INR today was noted as 2.6. IMPRESSION: 1. Severe leukocytosis for the patient was noted. 2. The patient with [id number] right pleural fluid as well. 3. Large mass for this patient was noted for this patient in the right upper lung for the patient, which has been previously diagnosed as squamous cell cancer. PLAN OF TREATMENT: Initially thoracentesis was planned for this patient, but or chest tube insertion for the patient to be done. Ultrasound of the chest was performed for patient at the bedside with large pocket of fluid was isolated. Continue monitoring the leukocytosis. Continuation of antibiotics for patient, suspected acute pneumonia for this patient as well. Bronchodilators. Continue maximum medical management of atrial fibrillation with rapid ventricular response. Other supportive therapy, plan and management and care. Usual treatments. [place], [place] PROGRESS NOTE NAME: TERI WARD UNIT #: [id number] ROOM: Formerly named [facility] DOCTOR: CHRISTINA NIELSEN MD BIRTHDATE: [birth year] CHRISTINA BARRETT MD CM:PNTRANS [id number] CHRISTINA REYES MD 12/29/16 1940 interface
--- NOTE | ~2016-12-27 | PR ---
[place], [place] PROGRESS NOTE NAME: TERI WARD [facility] #: [id number] UNIT #: [id number] ROOM: 509 DOCTOR: GRIS SHERMAN MD BIRTHDATE: [birth year] DOS: 12/30/2016 SUBJECTIVE: The patient is doing better after chest tube was placed. His breathing also better. REVIEW OF SYSTEMS: HEENT: No trouble swallowing. No double vision. No loss of vision. No pain. ENT AND RESPIRATORY: No wheeze. No change in voice. No cough. No shortness of breath. No coughing up blood. No epistaxis. CARDIOLOGIC: No chest pain. No dizziness. No irregular heartbeat. No leg edema. No palpitations. No shortness of breath. HEMATOLOGIC AND LYMPH: No past transfusion. No fatigue. No loss of appetite. No easy bruising. GASTROENTEROLOGIC: No change in bowel habits. No vomiting blood. No abdominal cramping. No nausea. No vomiting. No diarrhea. No constipation. No blood in stool. MALE REPRODUCTIVE: No testicular pain. No penile discharge. MUSCULOSKELETAL: No back pain. No muscle pain or weakness. No tingling/numbness. UROLOGIC: No pain with urination. No difficulty urinating. No frequent urination. NEUROLOGIC: No burning pain in feet. No trouble with coordination. No loss of consciousness. No headache. No tingling/numbness. No memory loss. PHYSICAL EXAMINATION: GENERAL: He is a pleasant gentleman in no apparent distress. VITAL SIGNS: Stable. Afebrile. HEENT: Normocephalic, atraumatic NECK AND THYROID: Supple. No JVD, thyromegaly, or lymphadenopathy. HEART: Normal S1, S2. Regular rate and rhythm. LUNGS: Showed decreased breath sounds in the right base. ABDOMEN: Soft. Nontender, nondistended. Bowel sounds present. EXTREMITIES: Normal ROM. No clubbing. No edema. LABORATORY DATA: Sodium 143, potassium 4.7, chloride 98, bicarbonate 39, BUN 19, EGFR more than 60. White count of 32.3, hemoglobin 11.7, hematocrit of 38.6, MCV 88.5, platelet count of 552,000. ASSESSMENT: 1. Status post right chest tube placement. 2. Pneumonia. 3. Sepsis. 4. Metastatic lung carcinoma. 5. Leukocytosis, reactive. 6. Thrombocytosis, reactive. PLAN: We will keep a close watch at this time. He is to continue broad spectrum antibiotics. We will also review the pleural fluid pathology. I expect the white count as well as platelets to get better once his overall condition improves. I had detailed discussion with the patient about it, he [place], [place] PROGRESS NOTE NAME: TERI WARD UNIT #: [id number] ROOM: 509 DOCTOR: WHIT DOWD,GRIS BIRTHDATE: [birth year] seemed to understand this. Ample time was given to the patient to ask me questions. GRIS SHERMAN MD CM:PNTRANS [id number] GRIS SHERMAN MD 12/30/16 0930 interface
--- NOTE | ~2016-12-27 | PR ---
[place], [place] PROGRESS NOTE NAME: TERI WARD [facility] #: [id number] UNIT #: [id number] ROOM: 509 DOCTOR: GRIS SHERMAN MD BIRTHDATE: [birth year] DOS: 01/05/2017 SUBJECTIVE: The patient is awake, alert. Denies any bleeding, bruising or petechiae, etc. He had a pleurodesis performed on 01/02/2017. REVIEW OF SYSTEMS: HEENT: No trouble swallowing. No double vision. No loss of vision. No pain. ENT AND RESPIRATORY: No wheeze. No change in voice. No cough. No shortness of breath. No coughing up blood. No epistaxis. CARDIOLOGIC: No chest pain. No dizziness. No irregular heartbeat. No leg edema. No palpitations. No shortness of breath. HEMATOLOGIC AND LYMPH: No past transfusion. No fatigue. No loss of appetite. No easy bruising. GASTROENTEROLOGIC: No change in bowel habits. No vomiting blood. No abdominal cramping. No nausea. No vomiting. No diarrhea. No constipation. No blood in stool. MALE REPRODUCTIVE: No testicular pain. No penile discharge. MUSCULOSKELETAL: No back pain. No muscle pain or weakness. No tingling/numbness. UROLOGIC: No pain with urination. No difficulty urinating. No frequent urination. NEUROLOGIC: No burning pain in feet. No trouble with coordination. No loss of consciousness. No headache. No tingling/numbness. No memory loss. PHYSICAL EXAMINATION: GENERAL: Pleasant gentleman, in no apparent distress. VITAL SIGNS: Stable, afebrile. HEENT: Normocephalic, atraumatic NECK AND THYROID: Supple. No JVD, thyromegaly, or lymphadenopathy. HEART: Normal S1, S2. Regular rate and rhythm. LUNGS: Clear to auscultation and percussion. ABDOMEN: Soft. Nontender, nondistended. Bowel sounds present. EXTREMITIES: Normal ROM. No clubbing. No edema. LABORATORY DATA: White count of 36.8, hemoglobin of 11.5, hematocrit 38.3, platelet count of 505,000. Peripheral smear shows metamyelocytes, myelocytes. INR 10.6 which had jumped from INR of 2.5 on January 02. TIBC 200, iron 21. ASSESSMENT: 1. Coagulopathy. 2. Sepsis. 3. Metastatic squamous cell carcinoma of the lung. 4. Anemia of neoplastic disorder. 5. Leukocytosis, reactive, secondary to infections. PLAN: The patient would benefit from vitamin K or fresh frozen plasma to bring his INR down. He is not bleeding or bruising at this time. Overall status updated, would continue broad-spectrum antibiotics, discussed. [place], [place] PROGRESS NOTE NAME: SYLVIATERI Gonzalo UNIT #: [id number] ROOM: [facility] DOCTOR: RGIS SHERMAN MD BIRTHDATE: [birth year] GRIS SHERMAN MD CM:SATNAM [id number] GRIS SHERMAN MD 01/06/17 0045 interface
--- NOTE | ~2016-12-27 | PROC NOTE ---
[place], [place] PROCEDURE NOTE NAME: TERI WARD [facility] #: [id number] UNIT #: [id number] ROOM: [facility] DOCTOR: CHRISTINA NIELSEN MD BIRTHDATE: [birth year] DOS: 12/29/2016 PROCEDURE: Chest tube thoracostomy on the right side for this patient for the large right pleural fluid. PREOPERATIVE DIAGNOSIS: Progressive enlarging right pleural fluid for the patient possibly related to underlying malignancy or pneumonia or combination of both. POSTOPERATIVE DIAGNOSES: Successful insertion of the chest tube #20-Kenyan for the patient in the right pleural space without any difficulty. PROCEDURE DESCRIPTION: Informed consent obtained from the patient. The ultrasound of the chest was performed. The pocket of pleural fluid for the site of thoracentesis and right chest tube insertion was marked. Skin was cleaned with chlorhexidine solution. 1% lidocaine was administered on the skin and intercostal space during administration of local anesthetic. Right pleural space was entered. After that, the incision was given in the skin. [place] thoracentesis tried to be advanced through the incision into the pleural space, not successful. After that, the large bore needle entered through the incision into the right pleural space with free fluid aspirated. After that, the syringe was removed. The needle remained in place. The guidewire threaded through the needle into the right pleural space. Needle was removed leaving the guidewire in place. Incision was further enlarged for this patient up to 24-Kenyan size for this patient. The plastic dilator for the patient used to enlarge the incision to 22-Kenyan size for this patient without any difficulty. A 20-Kenyan chest tube inserted by the Seldinger technique into the right pleural space without any difficulty. Initial fluid sample of the patient of 150 mL was collected for the cytology, cultures and others. The chest tube was connected to the Pleur-evac for the patient after drainage of about 1000 mL of pleural fluid for the patient gravity drainage. Chest tube was clamped for 15 minutes and then will be started to do suction. Chest x-ray done post-procedure shows almost complete resolution of the pleural fluid for this patient at the present time. Pain management to be continued. Other treatment changes be done for this patient as well. CHRISTINA BARRETT MD CM:PROCNOTE:PROCEDURE NOTE 1206 CHRISTINA REYES MD
--- NOTE | ~2016-12-27 | PR ---
[place], [place] PROGRESS NOTE NAME: TERI WARD UNIT #: [id number] ROOM: 509 DOCTOR: CHRISTINA NIELSEN MD BIRTHDATE: [birth year] DOS: 01/05/2017 SUBJECTIVE: He has been noted awake this morning, was noted decreased response and does not speak. The patient has not been noted any hemodynamic instability, getting oxygen supplementation with the nasal cannula with 50% Venturi mask. The patient has anticoagulation profile for the patient, which was done today shows significant Coumadin toxicity. There were no active signs of bleeding for this patient were present. OBJECTIVE: VITAL SIGNS: For the patient, which has been recorded showed the temperature of the patient noted as normal, respiratory rate 22, heart rate 103, blood pressure 118/82. HEENT: Examination shows head was atraumatic. Eyes, no icterus. NECK: Supple. CARDIOVASCULAR: S1, S2 audible. LUNGS: Rather noted with decreased breath sounds in the right lung of the patient previously. There were no crackles heard. ABDOMEN: Soft, nontender. LABORATORY DATA: INR for the patient noted as 10.5 initially and repeat INR of the patient noted as greater than 10.6. IMPRESSION: 1. The patient with evidence of Coumadin toxicity noted, most likely secondary drug interaction. 2. Atrial fibrillation, controlled range mostly. 3. Advanced lung malignancy on the right lung for this patient with malignant pleural fluid, has a squamous cell cancer as well. 4. Persistent acute hypoxic respiratory failure. 5. Leukocytosis. The patient was also noted persistent secondary to possibly underlying malignancy combination infection or other etiologies. PLAN OF TREATMENT: The Coumadin toxicity on the patient has been already addressed by the primary care attending. We will continue the patient on current plan of therapy as in progress. Usual care, other supportive plan of management and care. Further treatment changes will be done based on the progression of the illness. [place], [place] PROGRESS NOTE NAME: TERI WARD UNIT #: [id number] ROOM: 509 DOCTOR: CHRISTINA NIELSEN MD BIRTHDATE: [birth year] CHRISTINA BARRETT MD CM:PNTRANS [id number] 1 CHRISTINA REYES MD 01/06/17221 interface
--- NOTE | ~2016-12-27 | PR ---
[place], [place] PROGRESS NOTE NAME: TERI WARD [facility] #: [id number] UNIT #: [id number] ROOM: 509 DOCTOR: GRIS SHERMAN MD BIRTHDATE: [birth year] DOS: 12/29/2016 SUBJECTIVE: The patient is doing a bit better. He is awake, alert, responsive and feeling much better. Denies any chest pain, shortness of breath. REVIEW OF SYSTEMS HEENT: No trouble swallowing. No double vision. No loss of vision. No pain. ENT AND RESPIRATORY: No wheeze. No change in voice. No cough. No shortness of breath. No coughing up blood. No epistaxis. CARDIOLOGIC: No chest pain. No dizziness. No irregular heartbeat. No leg edema. No palpitations. No shortness of breath. HEMATOLOGIC AND LYMPH: No past transfusion. No fatigue. No loss of appetite. No easy bruising. GASTROENEROLOGIC: No change in bowel habits. No vomiting blood. No abdominal cramping. No nausea. No vomiting. No diarrhea. No constipation. No blood in stool. MALE REPRODUCTIVE: No testicular pain. No penile discharge. MUSCULOSKELETAL: No back pain. No muscle pain or weakness. No tingling/numbness. UROLOGIC: No pain with urination. No difficulty urinating. No frequent urination. NEUROLOGIC: No burning pain in feet. No trouble with coordination. No loss of consciousness. No headache. No tingling/numbness. No memory loss. PHYSICAL EXAMINATION: GENERAL: Pleasant gentleman in no apparent distress. VITAL SIGNS: Stable. He is afebrile. HEENT: Normocephalic, atraumatic NECK AND THYROID: Supple. No JVD, thyromegaly, or lymphadenopathy. HEART: Normal S1, S2. Regular rate and rhythm. LUNGS: Show bilateral rhonchi and diminished breath sounds. ABDOMEN: Soft. Nontender, nondistended. Bowel sounds present. EXTREMITIES: Normal ROM. No clubbing. No edema. ASSESSMENT: 1. Metastatic lung cancer. 2. Acute respiratory failure, hypoxia. 3. Anemia of neoplastic disease. 4. Leukocytosis, reactive. 5. Atrial fibrillation. PLAN: We will wait for his overall condition to improve. Continue broad spectrum antibiotics. Reviewed his CAT scans. We are trying to get PET scan which he is not able to get it and I am going to start chemotherapy once overall condition improves and we will defer PET scan for now that is what he wanted and the plan. We are getting late in the treatment. [place], [place] PROGRESS NOTE NAME: TERI WARD UNIT #: [id number] ROOM: [facility] DOCTOR: GRIS SHERMAN MD BIRTHDATE: [birth year] GRIS SHERMAN MD CM:PNTRANS [id number] GRIS SHERMAN MD 12/30/16 0115 interface
--- NOTE | ~2016-12-27 | PR ---
[place], [place] PROGRESS NOTE NAME: TERI WARD [facility] #: [id number] UNIT #: [id number] ROOM: 509 DOCTOR: NENA REYES MD,CHRISTINA BIRTHDATE: [birth year] DOS: 01/03/2017 PULMONARY FOLLOWUP NOTE SUBJECTIVE: The patient has been doing well at this time without any changes. He has been noted without any symptoms of chest pain or any acute abdominal pain. He had been using the BiPAP this morning. Chemical pleurodesis of the patient was done yesterday, which seemed to be effective at the present time. OBJECTIVE: VITAL SIGNS: For the patient, which has been recorded showed the temperature of the patient noted as normal. The respiratory rate 20, heart rate of 101, blood pressure of 90/65-120/55. HEENT: Examination shows no new change. NECK: Supple. CARDIOVASCULAR SYSTEM: S1, S2 is audible. LUNGS: The patient was noted without any wheezing or crackles, decreased breath sounds noted on the right side of the lung. ABDOMEN: Soft, nontender. LABORATORY DATA: CBC of the patient this morning, WBC count 35.6. Hemoglobin of 11.9, hematocrit 38.8, platelet count 460,000. The BMP noted with normal BUN and creatinine. Glucose 140. The vancomycin trough level was 15.1. Chest x-ray of the patient this morning seemed to be effective for this patient with some pleural thickening. Chest tube remains in place in the right lower hemithorax. PLAN OF TREATMENT: No changes in the plan of management at this time. Continue the patient on current therapy as in progress. Possible removal of the chest tube be considered in morning after chemical pleurodesis for patient, malignant pleural fluid. Continue antibiotic of the patient for the postobstructive pneumonia with gram-positive, gram-negative organisms. CHRISTINA BARRETT MD CM:PNTRANS [id number] CHRISTINA REYES MD 01/04/17 0244 interface
--- NOTE | ~2016-12-27 | PR ---
[place], [place] PROGRESS NOTE NAME: TERI WARD [facility] #: [id number] UNIT #: [id number] ROOM: 509 DOCTOR: GRIS SHERMAN MD BIRTHDATE: [birth year] DOS: 12/31/2016 SUBJECTIVE: The patient is doing better. He is awake, alert and oriented. . REVIEW OF SYSTEMS HEENT: No trouble swallowing. No double vision. No loss of vision. No pain. ENT AND RESPIRATORY: No wheeze. No change in voice. No cough. No shortness of breath. No coughing up blood. No epistaxis. CARDIOLOGIC: No chest pain. No dizziness. No irregular heartbeat. No leg edema. No palpitations. No shortness of breath. HEMATOLOGIC AND LYMPH: No past transfusion. No fatigue. No loss of appetite. No easy bruising. GASTROENEROLOGIC: No change in bowel habits. No vomiting blood. No abdominal cramping. No nausea. No vomiting. No diarrhea. No constipation. No blood in stool. MALE REPRODUCTIVE: No testicular pain. No penile discharge. MUSCULOSKELETAL: No back pain. No muscle pain or weakness. No tingling/numbness. UROLOGIC: No pain with urination. No difficulty urinating. No frequent urination. NEUROLOGIC: No burning pain in feet. No trouble with coordination. No loss of consciousness. No headache. No tingling/numbness. No memory loss. PHYSICAL EXAMINATION: GENERAL: Pleasant gentleman in no apparent distress. VITAL SIGNS: Blood pressure 95/64, respirations 20, pulse 50, temperature 98.2. HEENT: Normocephalic, atraumatic NECK AND THYROID: Supple. No JVD, thyromegaly, or lymphadenopathy. HEART: Normal S1, S2. Regular rate and rhythm. LUNGS: Right lung shows decreased breath sounds. ABDOMEN: Soft. Nontender, nondistended. Bowel sounds present. EXTREMITIES: Normal ROM. No clubbing. No edema. LABORATORY DATA: White count 25.9, hemoglobin 11.8, hematocrit 37.7, platelet count of 482. Peripheral smear shows myelocytes. ASSESSMENT: 1. Leukocytosis, probably reactive. 2. Anemia of neoplastic disorder. 3. Thrombocytosis, reactive. 4. Status post right chest tube placement. PLAN: The patient is on broad spectrum antibiotics we will continue that for now. Wait for the path report from peripheral to come back. In the meantime, continue broad spectrum antibiotics. In the meantime, I expect the white count and platelets to get better. Once his overall condition improves at this point because of his ongoing problems. We will wait for the overall condition to improve depending on the further intervention discussed. [place], [place] PROGRESS NOTE NAME: TERI WARD UNIT #: [id number] ROOM: [facility] DOCTOR: GRIS SHERMAN MD BIRTHDATE: [birth year] GRIS SHERMAN MD CM:SATNAM [id number] GRIS SHERMAN MD 12/31/16 1321 interface
[~2016-12-27 10:01] MED LIST changes: +DOXYCYCLINE100 MG PO; +FEOSOL325 MG PO; +LASIX40 MG PO; +NORCO 5-325 TA1 EACH PO
[2016-12-27] MEDS ORDERED: COUMADIN3 M1 PO (10:15)
[2016-12-27] MEDS ORDERED: RESTORIL15 MG PO (10:17)
[2016-12-27] MEDS ORDERED: TYLENOL325 M2 PO (10:22)
[2016-12-27] MEDS ORDERED: DULCOLAX10 M1 RC (10:23)
[2016-12-27 10:47] LABS: HEMATOCRIT 39.8 % (42.0-52.0); HEMOGLOBIN 12.4 g/dl (14.0-18.0); MEAN CELL VOLUME 88.2 fl (80.0-94.0); MEAN CORPUSCULAR HGB 27.5 pg (27.0-31.0); MEAN CORPUSCULAR HGB CONC 31.2 g/dl (33.0-37.0); PLATELET COUNT AUTOMATED 479 10*3/uL (130-400); RED BLOOD COUNT 4.51 10*6/uL (4.50-5.90); RED CELL DISTRI WIDTH 14.9 % (0-14.5)
[2016-12-27 10:56] LABS: INTERNATIONAL NORM RATIO 1.5 (2.0-3.5); PROTHROMBIN TIME 16.1 SECONDS (9.0-12.4)
[2016-12-27 11:02] LABS: ALBUMIN 1.9 gm/dl (3.1-4.5); ALKALINE PHOSPHATASE 74 U/L (45-117); BILIRUBIN, TOTAL 0.4 mg/dl (0.2-1.0); BUN 14 mg/dl (7-24); CARBON DIOXIDE 37 mmol/L (21-32); CHLORIDE 96 mmol/L (98-107); CKMB 1.4 ng/ml (0.5-3.6); CPK 51 U/L (39-308); EST GLOM FILT AFRICAN AMERICAN > 60 ml/min; GLUCOSE 128 mg/dL (65-99); MAGNESIUM 2.1 mg/dL (1.5-2.1); POTASSIUM 4.2 mmol/L (3.5-5.1); SGOT/AST 22 IU/L (3-35); SGPT/ALT 26 U/L (12-78); SODIUM 142 mmol/L (136-145); TOTAL PROTEIN 6.1 gm/dL (6.4-8.2)
[2016-12-27 11:03] LABS: TROPONIN I < 0.015 ng/ml (<0.045)
[2016-12-27 11:09] LABS: LYMPHOCYTE # 0.2 10*3/uL (1.3-4.4); METAMYELOCYTES 1 % (0-0); MONOCYTE # 0.7 10*3/uL (0.1-1.0); NEUTROPHIL # 21.9 10*3/uL (2.3-7.9); NEUTROPHILS 95 % (47-73); PLATELET SUFFICIENCY HIGH (NORMAL); TOTAL CELLS COUNTED 100 #CELLS; TOXIC GRANULATION SLIGHT
[2016-12-27] MEDS ORDERED: COUMADIN4 M2 PO (12:34)
[2016-12-27] MEDS ORDERED: Coumadin3 MG PO (12:36)
[2016-12-27] MEDS ORDERED: FEOSOL325 MG PO (12:39)
[2016-12-27] MEDS ORDERED: INCRUSE EL62.5 MCG/A IH (12:40)
[2016-12-27] MEDS ORDERED: Cimetidine300 MG PO (12:41)
[2016-12-27 18:25] LABS: CPK 60 U/L (39-308)
[2016-12-27 18:26] LABS: TROPONIN I < 0.015 ng/ml (<0.045)
[2016-12-28] VITALS (7 sets, daily range): BP systolic 95–122; BP diastolic 63–87
[2016-12-28 00:56] LABS: CKMB 1.9 ng/ml (0.5-3.6); CPK 49 U/L (39-308)
[2016-12-28 00:58] LABS: TROPONIN I < 0.015 ng/ml (<0.045)
[2016-12-28 05:32] LABS: CKMB 2.2 ng/ml (0.5-3.6); CPK 44 U/L (39-308)
[2016-12-28 05:34] LABS: TROPONIN I < 0.015 ng/ml (<0.045)
[2016-12-28 05:49] LABS: BUN 12 mg/dl (7-24); CHLORIDE 97 mmol/L (98-107); CHOLESTEROL 166 mg/dL (<200); EST GLOM FILT AFRICAN AMERICAN > 60 ml/min; GLUCOSE 164 mg/dL (65-99); POTASSIUM 4.3 mmol/L (3.5-5.1); SODIUM 141 mmol/L (136-145); TRIGLYCERIDES 82 mg/dl (<150); VLDL CHOLESTEROL 16 mg/dL (6-40)
[2016-12-28 05:57] LABS: HEMATOCRIT 36.5 % (42.0-52.0); HEMOGLOBIN 11.1 g/dl (14.0-18.0); MEAN CORPUSCULAR HGB 27.1 pg (27.0-31.0); MEAN CORPUSCULAR HGB CONC 30.4 g/dl (33.0-37.0); MEAN PLATELET VOLUME 9.3 fl (9.6-12.3); PLATELET COUNT AUTOMATED 483 10*3/uL (130-400); RED CELL DISTRI WIDTH 15.1 % (0-14.5); WHITE BLOOD COUNT 18.3 10*3/uL (4.8-10.8)
[2016-12-28 05:59] LABS: FREE T4 1.14 ng/dl (0.76-1.46); HDL CHOLESTEROL 36 mg/dl (40-60); LDL CHOLESTEROL 114 mg/dL (9-159); THYROID STIM HORMONE (HS) 0.694 uIU/ml (0.358-4.75)
[2016-12-28 06:05] LABS: CARBON DIOXIDE 42 mmol/L (21-32)
[2016-12-28 06:35] LABS: PROTHROMBIN TIME 21.7 SECONDS (9.0-12.4)
[2016-12-28 06:51] LABS: LYMPHOCYTE # 0.9 10*3/uL (1.3-4.4); METAMYELOCYTES 1 % (0-0); MONOCYTE # 0.2 10*3/uL (0.1-1.0); MYELOCYTES 1 % (0-0); NEUTROPHIL # 16.8 10*3/uL (2.3-7.9); NEUTROPHILS 92 % (47-73); PLATELET SUFFICIENCY HIGH (NORMAL); TOTAL CELLS COUNTED 100 #CELLS; TOXIC GRANULATION SLIGHT
[2016-12-28 07:19] LABS: FOLIC ACID 8.71 ng/mL (>5.38)
[2016-12-29] VITALS: BP 121/82
[2016-12-29 06:10] LABS: HEMATOCRIT 38.6 % (42.0-52.0); HEMOGLOBIN 11.7 g/dl (14.0-18.0); MEAN CELL VOLUME 88.5 fl (80.0-94.0); MEAN CORPUSCULAR HGB 26.8 pg (27.0-31.0); MEAN CORPUSCULAR HGB CONC 30.3 g/dl (33.0-37.0); MEAN PLATELET VOLUME 9.3 fl (9.6-12.3); PLATELET COUNT AUTOMATED 552 10*3/uL (130-400); RED BLOOD COUNT 4.36 10*6/uL (4.50-5.90); RED CELL DISTRI WIDTH 15.3 % (0-14.5); WHITE BLOOD COUNT 32.3 10*3/uL (4.8-10.8)
[2016-12-29 06:35] LABS: ALKALINE PHOSPHATASE 72 U/L (45-117); BILIRUBIN, TOTAL 0.2 mg/dl (0.2-1.0); BUN 19 mg/dl (7-24); CARBON DIOXIDE 39 mmol/L (21-32); CHLORIDE 98 mmol/L (98-107); EST GLOM FILT AFRICAN AMERICAN > 60 ml/min; GLUCOSE 113 mg/dL (65-99); INTERNATIONAL NORM RATIO 2.6 (2.0-3.5); MAGNESIUM 2.3 mg/dL (1.5-2.1); PHOSPHOROUS 3.4 mg/dL (2.5-4.9); POTASSIUM 4.7 mmol/L (3.5-5.1); PROTHROMBIN TIME 28.8 SECONDS (9.0-12.4); SGOT/AST 31 IU/L (3-35); SGPT/ALT 36 U/L (12-78); SODIUM 143 mmol/L (136-145)
[2016-12-29 06:40] LABS: LYMPHOCYTE # 0.6 10*3/uL (1.3-4.4); MONOCYTE # 1.6 10*3/uL (0.1-1.0); NEUTROPHILS 93 % (47-73); TOTAL CELLS COUNTED 100 #CELLS
[2016-12-29 06:41] LABS: HYPOCHROMIA SLIGHT; PLATELET SUFFICIENCY HIGH (NORMAL); POLYCHROMASIA SLIGHT
[2016-12-29 08:00] VITALS: BP 124/81
[2016-12-29 10:33] LABS: BODY FLUID RBC 11000 /uL; BODY FLUID WBC 3349 /uL
[2016-12-29 11:07] LABS: BODY FLUID ALBUMIN 1.1 g/dL; BODY FLUID AMYLASE 10 U/L; BODY FLUID CHOLESTEROL 58 mg/dl; BODY FLUID GLUCOSE 119 mg/dl; BODY FLUID LDH 188 IU/L; BODY FLUID PROTEIN 2.3 g/dl; BODY FLUID TRIGLYCERIDE 14 mg/dl
[2016-12-29 11:16] LABS: BF LYMPHOCYTES 14 %; BF MACROPHAGES 15 %; BF MONOCYTES 1 %; BF NEUTROPHILS 70 %
[2016-12-29 12:00] VITALS: BP 102/77
[2016-12-29 12:28] LABS: BODY FLUID TYPE PLEURAL
[2016-12-29 16:00] VITALS: BP 116/79
[2016-12-29 16:51] LABS: ABG BASE EXCESS 11.8 mmol/L (-2.0-2.0); ABG CO2 CONTENT 40.1 mmol/L (23-27); ABG HCO3 38.2 mmol/l (22-26); ABG TEMPERATURE 97.8 F (98.0-99.0); ARTERIAL BLOOD GAS PH 7.428 (7.35-7.45); ARTERIAL BLOOD GAS PO2 88.4 mmHg (80-90)
[2016-12-29 20:00] VITALS: BP 101/74
[2016-12-30] VITALS: BP 105/75
[2016-12-30 07:35] LABS: HEMATOCRIT 37.7 % (42.0-52.0); HEMOGLOBIN 11.8 g/dl (14.0-18.0); MEAN CELL VOLUME 87.3 fl (80.0-94.0); MEAN CORPUSCULAR HGB 27.3 pg (27.0-31.0); MEAN CORPUSCULAR HGB CONC 31.3 g/dl (33.0-37.0); MEAN PLATELET VOLUME 9.2 fl (9.6-12.3); PLATELET COUNT AUTOMATED 482 10*3/uL (130-400); RED BLOOD COUNT 4.32 10*6/uL (4.50-5.90); RED CELL DISTRI WIDTH 15.4 % (0-14.5); WHITE BLOOD COUNT 25.9 10*3/uL (4.8-10.8)
[2016-12-30 07:46] LABS: BUN 27 mg/dl (7-24); CARBON DIOXIDE 35 mmol/L (21-32); CHLORIDE 99 mmol/L (98-107); EST GLOM FILT AFRICAN AMERICAN > 60 ml/min; GLUCOSE 129 mg/dL (65-99); POTASSIUM 4.7 mmol/L (3.5-5.1); SODIUM 138 mmol/L (136-145)
[2016-12-30 07:58] LABS: VANCOMYCIN TROUGH 23.6 ug/mL (10-20)
[2016-12-30 08:00] VITALS: BP 95/61
[2016-12-30 08:00] LABS: EOSINOPHIL # 0.8 10*3/uL (0-0.4); EOSINOPHILS 3 % (1-4); MONOCYTE # 1.6 10*3/uL (0.1-1.0); MYELOCYTES 1 % (0-0); NEUTROPHIL # 23.3 10*3/uL (2.3-7.9); NEUTROPHILS 90 % (47-73); PLATELET SUFFICIENCY NORMAL (NORMAL); TOTAL CELLS COUNTED 100 #CELLS; TOXIC GRANULATION SLIGHT
[2016-12-30 08:10] LABS: INTERNATIONAL NORM RATIO 1.7 (2.0-3.5); PROTHROMBIN TIME 19.1 SECONDS (9.0-12.4)
[2016-12-30 12:00] VITALS: BP 103/62
[2016-12-30 16:00] VITALS: BP 97/61
[2016-12-30 20:00] VITALS: BP 102/64
[2016-12-31] VITALS: BP 102/56
[2016-12-31 08:00] VITALS: BP 102/60
[2016-12-31 11:19] LABS: BUN 25 mg/dl (7-24); CARBON DIOXIDE 40 mmol/L (21-32); CHLORIDE 98 mmol/L (98-107); EST GLOM FILT AFRICAN AMERICAN > 60 ml/min; GLUCOSE 127 mg/dL (65-99); POTASSIUM 4.4 mmol/L (3.5-5.1); SODIUM 142 mmol/L (136-145)
[2016-12-31 11:44] LABS: HEMOGLOBIN 11.6 g/dl (14.0-18.0); MEAN CORPUSCULAR HGB 26.9 pg (27.0-31.0); MEAN CORPUSCULAR HGB CONC 30.5 g/dl (33.0-37.0); MEAN PLATELET VOLUME 9.6 fl (9.6-12.3); PLATELET COUNT AUTOMATED 456 10*3/uL (130-400); RED BLOOD COUNT 4.32 10*6/uL (4.50-5.90); RED CELL DISTRI WIDTH 15.5 % (0-14.5); WHITE BLOOD COUNT 27.1 10*3/uL (4.8-10.8)
[2016-12-31 11:48] LABS: INTERNATIONAL NORM RATIO 1.4 (2.0-3.5); PROTHROMBIN TIME 14.9 SECONDS (9.0-12.4)
[2016-12-31 12:00] VITALS: BP 102/64
[2016-12-31 12:28] LABS: LYMPHOCYTE # 0.8 10*3/uL (1.3-4.4); METAMYELOCYTES 1 % (0-0); MONOCYTE # 1.6 10*3/uL (0.1-1.0); MYELOCYTES 1 % (0-0); NEUTROPHIL # 24.1 10*3/uL (2.3-7.9); NEUTROPHILS 89 % (47-73); TOTAL CELLS COUNTED 100 #CELLS
[2016-12-31 12:29] LABS: PLATELET SUFFICIENCY HIGH (NORMAL); TOXIC GRANULATION SLIGHT
[2016-12-31 16:00] VITALS: BP 109/71
[2016-12-31 20:00] VITALS: BP 140/88
[2017-01-01] VITALS: BP 160/80
[2017-01-01 06:55] LABS: HEMATOCRIT 36.9 % (42.0-52.0); HEMOGLOBIN 11.2 g/dl (14.0-18.0); MEAN CELL VOLUME 89.1 fl (80.0-94.0); MEAN CORPUSCULAR HGB 27.1 pg (27.0-31.0); MEAN CORPUSCULAR HGB CONC 30.4 g/dl (33.0-37.0); MEAN PLATELET VOLUME 9.2 fl (9.6-12.3); PLATELET COUNT AUTOMATED 473 10*3/uL (130-400); RED BLOOD COUNT 4.14 10*6/uL (4.50-5.90); RED CELL DISTRI WIDTH 15.6 % (0-14.5); WHITE BLOOD COUNT 26.7 10*3/uL (4.8-10.8)
[2017-01-01 07:09] LABS: BUN 21 mg/dl (7-24); CARBON DIOXIDE 37 mmol/L (21-32); CHLORIDE 100 mmol/L (98-107); EST GLOM FILT AFRICAN AMERICAN > 60 ml/min; GLUCOSE 125 mg/dL (65-99); POTASSIUM 4.7 mmol/L (3.5-5.1); SODIUM 142 mmol/L (136-145)
[2017-01-01 07:23] LABS: METAMYELOCYTES 3 % (0-0); MONOCYTE # 2.4 10*3/uL (0.1-1.0); MYELOCYTES 1 % (0-0); NEUTROPHIL # 23.2 10*3/uL (2.3-7.9); NEUTROPHILS 87 % (47-73); TOTAL CELLS COUNTED 100 #CELLS
[2017-01-01 07:24] LABS: PLATELET SUFFICIENCY HIGH (NORMAL); VACUOLATION OF NEUTROPHILS SLIGHT
[2017-01-01 07:27] LABS: INTERNATIONAL NORM RATIO 1.3 (2.0-3.5)
[2017-01-01 07:31] VITALS: BP 112/73
[2017-01-01 12:00] VITALS: BP 98/56
[2017-01-01 16:00] VITALS: BP 97/65
[2017-01-01 20:00] VITALS: BP 100/68
[2017-01-02] VITALS: BP 97/81
[2017-01-02 07:03] LABS: HEMATOCRIT 36.9 % (42.0-52.0); HEMOGLOBIN 11.1 g/dl (14.0-18.0); MEAN CELL VOLUME 88.7 fl (80.0-94.0); MEAN CORPUSCULAR HGB 26.7 pg (27.0-31.0); MEAN CORPUSCULAR HGB CONC 30.1 g/dl (33.0-37.0); MEAN PLATELET VOLUME 9.2 fl (9.6-12.3); PLATELET COUNT AUTOMATED 402 10*3/uL (130-400); RED BLOOD COUNT 4.16 10*6/uL (4.50-5.90); RED CELL DISTRI WIDTH 15.6 % (0-14.5)
[2017-01-02 07:10] LABS: BUN 19 mg/dl (7-24); CARBON DIOXIDE 38 mmol/L (21-32); CHLORIDE 99 mmol/L (98-107); EST GLOM FILT AFRICAN AMERICAN > 60 ml/min; GLUCOSE 115 mg/dL (65-99); POTASSIUM 4.5 mmol/L (3.5-5.1); SODIUM 141 mmol/L (136-145)
[2017-01-02 07:38] LABS: EOSINOPHIL # 0.3 10*3/uL (0-0.4); EOSINOPHILS 1 % (1-4); LYMPHOCYTE # 0.6 10*3/uL (1.3-4.4); METAMYELOCYTES 2 % (0-0); MYELOCYTES 2 % (0-0); NEUTROPHIL # 24.9 10*3/uL (2.3-7.9); NEUTROPHILS 86 % (47-73); PLATELET SUFFICIENCY HIGH (NORMAL); TOTAL CELLS COUNTED 100 #CELLS
[2017-01-02 07:39] LABS: TOXIC GRANULATION SLIGHT
[2017-01-02 08:00] VITALS: BP 111/70
[2017-01-02 08:07] LABS: INTERNATIONAL NORM RATIO 2.5 (2.0-3.5); PROTHROMBIN TIME 27.5 SECONDS (9.0-12.4)
[2017-01-02 12:00] VITALS: BP 94/67
[2017-01-02 16:00] VITALS: BP 94/50
[2017-01-02 20:00] VITALS: BP 124/53
[2017-01-03] VITALS: BP 120/55
[2017-01-03 08:00] VITALS: BP 98/60
[2017-01-03 09:41] LABS: HEMATOCRIT 38.8 % (42.0-52.0); HEMOGLOBIN 11.9 g/dl (14.0-18.0); MEAN CELL VOLUME 87.8 fl (80.0-94.0); MEAN CORPUSCULAR HGB 26.9 pg (27.0-31.0); MEAN CORPUSCULAR HGB CONC 30.7 g/dl (33.0-37.0); MEAN PLATELET VOLUME 9.1 fl (9.6-12.3); PLATELET COUNT AUTOMATED 460 10*3/uL (130-400); RED BLOOD COUNT 4.42 10*6/uL (4.50-5.90); RED CELL DISTRI WIDTH 15.7 % (0-14.5); WHITE BLOOD COUNT 35.6 10*3/uL (4.8-10.8)
[2017-01-03 10:02] LABS: BUN 21 mg/dl (7-24); CHLORIDE 98 mmol/L (98-107); EST GLOM FILT AFRICAN AMERICAN > 60 ml/min; GLUCOSE 140 mg/dL (65-99); POTASSIUM 4.9 mmol/L (3.5-5.1); SODIUM 143 mmol/L (136-145)
[2017-01-03 10:04] LABS: CARBON DIOXIDE 41 mmol/L (21-32)
[2017-01-03 10:11] LABS: LYMPHOCYTE # 1.1 10*3/uL (1.3-4.4); METAMYELOCYTES 1 % (0-0); MONOCYTE # 4.6 10*3/uL (0.1-1.0); NEUTROPHIL # 29.5 10*3/uL (2.3-7.9); NEUTROPHILS 83 % (47-73); PLATELET SUFFICIENCY HIGH (NORMAL); TOTAL CELLS COUNTED 100 #CELLS
[2017-01-03 10:12] LABS: TOXIC GRANULATION SLIGHT
[2017-01-03 12:00] VITALS: BP 90/65
[2017-01-03 16:00] VITALS: BP 101/52
[2017-01-03 20:00] VITALS: BP 100/70
[2017-01-04] VITALS: BP 117/78
[2017-01-04 04:55] VITALS: BP 120/70
[2017-01-04 06:59] LABS: HEMATOCRIT 38.3 % (42.0-52.0); HEMOGLOBIN 11.5 g/dl (14.0-18.0); MEAN CELL VOLUME 88.7 fl (80.0-94.0); MEAN CORPUSCULAR HGB 26.6 pg (27.0-31.0); MEAN PLATELET VOLUME 9.3 fl (9.6-12.3); PLATELET COUNT AUTOMATED 505 10*3/uL (130-400); RED BLOOD COUNT 4.32 10*6/uL (4.50-5.90); RED CELL DISTRI WIDTH 15.6 % (0-14.5); WHITE BLOOD COUNT 36.8 10*3/uL (4.8-10.8)
[2017-01-04 07:27] LABS: METAMYELOCYTES 2 % (0-0); MONOCYTE # 2.6 10*3/uL (0.1-1.0); MYELOCYTES 1 % (0-0); NEUTROPHIL # 33.1 10*3/uL (2.3-7.9); NEUTROPHILS 90 % (47-73); PLATELET SUFFICIENCY HIGH (NORMAL); POLYCHROMASIA SLIGHT; STOMATOCYTE FEW; TOTAL CELLS COUNTED 100 #CELLS
[2017-01-04 07:28] LABS: BUN 22 mg/dl (7-24); CARBON DIOXIDE 39 mmol/L (21-32); CHLORIDE 99 mmol/L (98-107); EST GLOM FILT AFRICAN AMERICAN > 60 ml/min; GLUCOSE 133 mg/dL (65-99); POTASSIUM 4.2 mmol/L (3.5-5.1); SODIUM 140 mmol/L (136-145)
[2017-01-04 08:00] VITALS: BP 102/64
[2017-01-04 12:00] VITALS: BP 100/55
[2017-01-04 16:00] VITALS: BP 100/60
[2017-01-04 20:00] VITALS: BP 100/57
[2017-01-05] VITALS: BP 118/66
[2017-01-05 06:44] LABS: PROTHROMBIN TIME 129.3 SECONDS (9.0-12.4)
[2017-01-05 06:55] LABS: INTERNATIONAL NORM RATIO 10.5 (2.0-3.5)
[2017-01-05 07:40] LABS: PROTHROMBIN TIME > 130.0 SECONDS (9.0-12.4)
[2017-01-05 07:42] LABS: INTERNATIONAL NORM RATIO > 10.6 (2.0-3.5)
[2017-01-05 08:00] VITALS: BP 118/82
[2017-01-05 10:47] LABS: PROTHROMBIN TIME > 130.0 SECONDS (9.0-12.4)
[2017-01-05 10:53] LABS: INTERNATIONAL NORM RATIO > 10.6 (2.0-3.5)
[2017-01-05 12:00] VITALS: BP 98/62
[2017-01-05 16:00] VITALS: BP 124/65
[2017-01-05] MEDS ORDERED: METOPROLOL SUC100 M1 PO (17:56)
[2017-01-05] MEDS ORDERED: DILTIAZEM 24HR120 MG PO (17:56)
== END 2017-01-05 19:06 | disposition hospice, home (50) | DRG 871 ==
LOC: ED 10:01 → 5E 11:28 → ICCU 11:28 → EDHOLD 11:28 → ICCU 11:52 → 5E 12-28 15:03
PROVIDERS: Emergency Medicine; Family Medicine; Internal Medicine; Internal Medicine Critical Care Medicine; Internal Medicine Hospice and Palliative Medicine
PROC: 5A09357 Assistance with Respiratory Ventilation, Less than 24 Consecutive Hours, Continuous Positive Airway Pressure (ICD-10-PCS; 2016-12-29)
PROC: 0W9930Z Drainage of Right Pleural Cavity with Drainage Device, Percutaneous Approach (ICD-10-PCS; 2016-12-29)
PROC: 3E0L3GC Introduction of Other Therapeutic Substance into Pleural Cavity, Percutaneous Approach (ICD-10-PCS; principal; 2017-01-02)
DX: A41.9 Sepsis, unspecified organism (principal); J18.9 Pneumonia, unspecified organism; J96.01 Acute respiratory failure with hypoxia; E43 Unspecified severe protein-calorie malnutrition; I50.9 Heart failure, unspecified; C34.91 Malignant neoplasm of unspecified part of right bronchus or lung; M41.26 Other idiopathic scoliosis, lumbar region; E83.41 Hypermagnesemia; R65.20 Severe sepsis without septic shock; I48.91 Unspecified atrial fibrillation; J43.9 Emphysema, unspecified; B18.2 Chronic viral hepatitis C; F32.9 Major depressive disorder, single episode, unspecified; Z87.891 Personal history of nicotine dependence; D64.9 Anemia, unspecified; D47.3 Essential (hemorrhagic) thrombocythemia; M19.90 Unspecified osteoarthritis, unspecified site; Z80.9 Family history of malignant neoplasm, unspecified; Z79.899 Other long term (current) drug therapy